=== PATIENT | female | born 1950 | race Caucasian/White ===

== ENCOUNTER 2016-07-23 13:18 | Emergency (ER) | payer BC ==
[~2016-07-23] VITALS: Ht 157.5 cm; Wt 63.5 kg
[2016-07-23 13:23] VITALS: Ht 157.5 cm; Wt 63.5 kg
[2016-07-23] MEDS ORDERED: SODIUM CHLORIDE 0.9% 1000ML 1,000 ML IV STA (14:16)
[2016-07-23] MEDS ORDERED: KETOROLAC TROMETHAMINE 30 MG/ML VIAL IV STA (14:16)
--- NOTE | 2016-07-23 14:21 | EMERGENCY ROOM VISIT NOTE ---
History Report prepared by Sav: Marycarmen Cardenas Under the Supervision of: Dr. Michael Zhang M.D. First contact with patient: 14:10 Chief Complaint: ILLNESS Stated Complaint: EVERYTHING HURTS, FEVER History of Present Illness The patient is a 66 year old female who presents to the Emergency Room with complaints of a persistent illness. She reports she has experienced a fever, cough and body aches since . She rates her discomfort as a 5/10. Last night she started dry heaving from coughing so much. She complains of a headache , but has not experienced any difficulty or pain with moving her head or neck. She did get a flu vaccination this year. She has taken Tylenol for her fever, with the last dose being taken sometime this morning. It has provided moderate relief of her pain and has kept her temperature under control when she takes it. She states the highest her fever has been is around 103 degrees. 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 A total of 10 systems reviewed and were otherwise negative. Past Medical & Surgical Medical Problems: (1) Kidney stones Family History Patient reports no known family medical history. Social History Smoking Status: Never Smoker Alcohol Use: none Drug Use: none Marital Status: Housing Status: lives with significant other Occupation Status: retired Current/Historical Medications Scheduled Acetaminophen (Tylenol), 1 TAB PO DAILY Azithromycin (Zithromax), 250 MG PO DAILY Fluticasone Propionate (Fluticasone Propionate), 1 SPRAY SANTI DAILY Kqciajhizivlv-Iwgkrmyoqt-Xklcx (Nyquil Severe Cold/Flu 5-6.25-10-325 mg/15Ml), Unknown Dose PO DAILY Prednisone (Prednisone Tab), 0 PO DAILY Scheduled PRN Colestipol Hcl (Colestipol Hcl), 1 GM PO DAILY PRN for Diarrhea Allergies Coded Allergies: No Known Allergies (Verified , 07/23/16) Physical Exam Vital Signs Date Time Temp Pulse Resp B/P Pulse Ox O2 Delivery O2 Flow Rate FiO2 07/23/16 16:47 37.0 124 16 136/75 99 07/23/16 16:03 124 16 93 07/23/16 15:58 136/75 07/23/16 15:33 121 22 100 07/23/16 15:28 137/76 07/23/16 15:18 111 15 100 07/23/16 15:12 110 07/23/16 15:10 99 Room Air 07/23/16 14:58 137/84 07/23/16 13:23 37.0 120 20 124/90 99 Room Air Physical Exam GENERAL: Patient is a healthy-appearing well-nourished HEAD: Normocephalic atraumatic EYES: Ocular movements intact pupils equal and react to light OROPHARYNX mucous membranes are moist no exudates present no erythema or edema present NECK: Supple no nuchal rigidity CHEST: Good equal expansion LUNGS: Clear and equal to auscultation CARDIAC: Normal S1 and S2 ABDOMEN: Soft nontender no guarding BACK: No CVA tenderness EXTREMITIES: No pain upon palpation normal muscle strength in all groups no clubbing cyanosis or edema NEURO: Patient is following commands is answering questions appropriately. Alert and oriented x3 Cranial Nerves 2-12 grossly intact Medical Decision & Procedures ER Provider Diagnostic Interpretation: This X-Ray was reviewed and interpreted by myself and the radiologist. SINGLE VIEW CHEST IMPRESSION: No acute cardiopulmonary abnormality. Electronically signed by: Jeremias Baldwin M.D. 07/23/2016 3:21 PM Laboratory Results 07/23/16 14:35 Red Blood Count 4.94, Mean Corpuscular Volume 89.7, Mean Corpuscular Hemoglobin 31.8, Mean Corpuscular Hemoglobin Concent 35.4, Mean Platelet Volume 12.3, Neutrophils (%) (Auto) 76.0, Lymphocytes (%) (Auto) 14.4, Monocytes (%) (Auto) 8.0, Eosinophils (%) (Auto) 1.0, Basophils (%) (Auto) 0.3, Neutrophils # (Auto) 8.42, Lymphocytes # (Auto) 1.60, Monocytes # (Auto) 0.89, Eosinophils # (Auto) 0.11, Basophils # (Auto) 0.03 07/23/16 14:35 Test 07/23/16 14:35 07/23/16 15:07 White Blood Count 11.08 K/uL (4.8-10.8) Red Blood Count 4.94 M/uL (4.2-5.4) Hemoglobin 15.7 g/dL (12.0-16.0) Hematocrit 44.3 % (37-47) Mean Corpuscular Volume 89.7 fL (80-100) Mean Corpuscular Hemoglobin 31.8 pg (25-34) Mean Corpuscular Hemoglobin Concent 35.4 g/dl (32-36) Platelet Count 177 K/uL (130-400) Mean Platelet Volume 12.3 fL (7.4-10.4) Neutrophils (%) (Auto) 76.0 % Lymphocytes (%) (Auto) 14.4 % Monocytes (%) (Auto) 8.0 % Eosinophils (%) (Auto) 1.0 % Basophils (%) (Auto) 0.3 % Neutrophils # (Auto) 8.42 K/uL (1.4-6.5) Lymphocytes # (Auto) 1.60 K/uL (1.2-3.4) Monocytes # (Auto) 0.89 K/uL (0.11-0.59) Eosinophils # (Auto) 0.11 K/uL (0-0.5) Basophils # (Auto) 0.03 K/uL (0-0.2) RDW Standard Deviation 41.1 fL (36.4-46.3) RDW Coefficient of Variation 12.6 % (11.5-14.5) Immature Granulocyte % (Auto) 0.3 % Immature Granulocyte # (Auto) 0.03 K/uL (0.00-0.02) Anion Gap 9.0 mmol/L (3-11) Est Creatinine Clear Calc Drug Dose 50.3 ml/min Estimated GFR () 69.8 Estimated GFR (Non- 60.2 BUN/Creatinine Ratio 10.9 (10-20) Calcium Level 9.3 mg/dl (8.5-10.1) Total Bilirubin 1.3 mg/dl (0.2-1) Direct Bilirubin 0.2 mg/dl (0-0.2) Aspartate Amino Transf (AST/SGOT) 19 U/L (15-37) Alanine Aminotransferase (ALT/SGPT) 25 U/L (12-78) Alkaline Phosphatase 88 U/L (45-117) Total Protein 8.3 gm/dl (6.4-8.2) Albumin 4.0 gm/dl (3.4-5.0) Thyroid Stimulating Hormone (TSH) 2.020 uIu/ml (0.300-4.500) Influenza Type A Antigen Neg for Influ A (NEG) Influenza Type B Antigen Neg for Influ B (NEG) Labs reviewed by ED physician. Medications Administered Medications (Trade) Dose Ordered Sig/Joe Route Start Time Stop Time Status Last Admin Dose Admin Sodium Chloride (Nss 1000ml) 1,000 ml @ 999 mls/hr Q1H1M STAT IV 07/23/16 14:16 07/23/16 15:16 DC 07/23/16 14:16 999 MLS/HR Ketorolac Tromethamine (Toradol Inj) 30 mg NOW STAT IV 07/23/16 14:16 07/23/16 14:19 DC 07/23/16 14:16 30 MG Albuterol/ Ipratropium (Duoneb) 12 ml ONE ONCE INH 07/23/16 14:30 07/23/16 14:36 DC 07/23/16 14:30 12 ML Albuterol (Ventolin Hfa Inhaler) 2 puffs NOW STAT INH 07/23/16 14:24 07/23/16 14:25 DC 07/23/16 14:24 2 PUFFS Azithromycin 500 mg 500 mg NOW STAT PO 07/23/16 15:26 07/23/16 15:28 DC 07/23/16 15:26 500 MG Methylprednisolone Sodium Succinate/ Syringe (Solu-Medrol IV/ Syringe) 0.96 ml @ 1.5 mls/min NOW ONCE IV 07/23/16 16:00 07/23/16 16:01 DC 07/23/16 16:00 1.5 MLS/MIN ECG Indication: other (fever) Rate (beats per minute): 112 Rhythm: sinus tachycardia Findings: no acute ischemic change, no ectopy ED Course 1412: Past medical records reviewed. The patient was evaluated in room A11. A complete history and physical examination was performed. 1416: Toradol 30 mg IV, NSS 1000 ml @ 999 mls/hr IV. 1424: Albuterol 2 puffs INH. 1430: DuoNeb 12 ml INH. 1525: I reevaluated the patient. She is feeling better and resting comfortably. 1526: Zithromax 500 mg PO, Solu-Medrol 60 mg IV. 1600: Methylprednisolone Sodium Succinate 60 mg/Syringe 0.96 ml @ 1.5 mls/min IV. 1645: I reevaluated the patient. She is feeling better. I discussed the patient' s results and discharge instructions and she verbalized complete understanding and agreement. Medical Decision Prior records/ancillary studies reviewed. Triage Nursing notes reviewed. The patient's history was concerning for fever. Differential diagnosis: Etiologies such as viral syndrome, otitis, pharyngitis, pneumonia, influenza, meningitis, urinary tract infection, sepsis, bacteremia, as well as others were entertained. This is a 66-year-old female who presents emergency Department with flulike symptoms. The patient is wheezing on examination. For this reason the patient was given an hour-long breathing treatment and started on Solu-Medrol. She has a clear chest x-ray. Pertussis and influenza swabs are obtained. Her influenza swab is negative. The patient was started on azithromycin I will be continued on prednisone at home. Repeat examination revealed much improvement patient's symptoms. I encouraged the patient's take I Profen as well as Tylenol. Patient was in agreement with the treatment plan. Impression Primary Impression: Bronchitis Scribe Attestation The scribe's documentation has been prepared under my direction and personally reviewed by me in its entirety. I confirm that the note above accurately reflects all work, treatment, procedures, and medical decision making performed by me. Departure Information Dispostion Home / Self-Care Prescriptions Azithromycin (ZITHROMAX) 250 Mg Tab 250 MG PO DAILY, #4 TAB Prov: Michael Zhang MD 07/23/16 Prednisone (Prednisone Tab) 20 Mg Tab 0 PO DAILY, #7 TAB 2 TABS DAILY FOR 2 DAYS, THEN 1 TAB DAILY FOR 2 DAYS, THEN 1/2 TAB DAILY FOR 2 DAYS. Prov: Michael Zhang MD 07/23/16 Referrals Arnold Ervin M.D. (PCP) Patient Instructions A Signature Page, ED Bronchitis Abx Tx, My [facility] Additional Instructions Use inhaler twice every 6 hours Culture results are usually available in approx 48 hours You have been examined and treated today on an emergency basis only. This is not a substitute for, or an effort to provide, complete comprehensive medical care. It is impossible to recognize and treat all injuries or illnesses in a single emergency department visit. It is therefore important that you follow up closely with Dr Ervin. Call as soon as possible for an appointment. Thank you for your time and consideration. I look forward to speaking with you again soon. Please don't hesitate to call us if you have any questions.
[2016-07-23] MEDS ORDERED: ALBUTEROL HFA 8 GM INHALER INH STA (14:24)
[2016-07-23] MEDS ORDERED: ALBUT/IPRATROP 3MG/0.5MG NEB 3 ML VIAL INH ONE (14:30)
[2016-07-23 14:50] LABS: BASO % 0.3 %; BASO ABS # 0.03 K/uL (0-0.2); COMPLETE YES; HEMATOCRIT 44.3 % (37-47); IG% 0.3 %; LYMPH % 14.4 %; MEAN CELL VOLUME 89.7 fL (80-100); MEAN CORPUSCULAR HEMOGLOBIN 31.8 pg (25-34); MEAN CORPUSCULAR HGB CONC 35.4 g/dl (32-36); MEAN PLATELET VOLUME 12.3 fL (7.4-10.4); PLATELET COUNT 177 K/uL (130-400); RED BLOOD COUNT 4.94 M/uL (4.2-5.4); WHITE BLOOD COUNT 11.08 K/uL (4.8-10.8)
[2016-07-23] MEDS ORDERED: COLE1TAB5 PO (14:52)
[2016-07-23] MEDS ORDERED: FLNIN/ NAE (14:54)
[2016-07-23] MEDS ORDERED: ACET-1256 PO (14:56)
[2016-07-23] MEDS ORDERED: PHEN-905 PO (14:57)
[2016-07-23 15:10] VITALS: O2SAT 99
[2016-07-23 15:15] LABS: BUN/CREATININE RATIO 10.9 (10-20); CALCIUM 9.3 mg/dl (8.5-10.1); CREATININE 0.99 mg/dl (0.60-1.20); POTASSIUM 3.8 mmol/L (3.5-5.1)
[2016-07-23 15:19] LABS: THYROID STIMULATING HORMONE 2.02 uIu/ml (0.300-4.500)
--- NOTE | 2016-07-23 15:23 | DIAGNOSTIC IMAGING REPORT ---
SINGLE VIEW CHEST CLINICAL HISTORY: Dyspnea. FINDINGS: An AP, portable, upright chest radiograph is obtained. No prior studies are available for comparison at the time of dictation. The examination is degraded by portable technique, apical lordotic positioning, and patient rotation. The cardiomediastinal silhouette is unremarkable. Nonspecific interstitial thickening is observed. The lungs and pleural spaces are clear. No pneumothorax is seen. The skeletal structures are osteopenic. The bony thorax is grossly intact. Cholecystectomy clips are identified in the right upper quadrant. IMPRESSION: No acute cardiopulmonary abnormality. Electronically signed by: Jeremias Baldwin M.D. 07/23/2016 3:21 PM
[2016-07-23] MEDS ORDERED: AZITHROMYCIN 250 MG TAB PO STA (15:26)
[2016-07-23] MEDS ORDERED: METHYLPREDNISOLONE 125 MG VIAL IV STA (15:26)
[2016-07-23] MEDS ORDERED: PRED20TA2 PO (15:39)
[2016-07-23] MEDS ORDERED: AZIT-60 PO (15:40)
[2016-07-23] MEDS ORDERED: METHYLPREDNISOLONE 60 MG in SYRINGE 0 ML IV ONE (16:00)
[2016-07-23 16:47] VITALS: BP 136/75; PULSE 124; TEMP 37; O2SAT 99
[2016-07-26 13:28] LABS: BORDETELLA PERTUSSIS SOURCE Swab
== END 2016-07-23 16:49 | disposition home or self-care (01) ==
LOC: C.EDB 13:20 → C.EDA 16:49
DX: J40 Bronchitis, not specified as acute or chronic (principal); Z87.442 Personal history of urinary calculi

== ENCOUNTER → 2016-08-08 | Outpatient (CLI) | payer BC ==
[~2016-08-08] MED LIST: ACET-1256 PO; COLE1TAB5 PO; FLNIN/ NAE; PHEN-905 PO; PRED20TA2 PO
--- NOTE | 2016-08-08 09:32 | DIAGNOSTIC IMAGING REPORT ---
BILIARY ULTRASOUND CLINICAL HISTORY: PANCREATITIS COMPARISON STUDY: CT scan dated 05/13/2015 FINDINGS: The pancreas appears sonographically normal. There are no peripancreatic fluid collections. The gallbladder surgically absent. There is no ductal dilatation. The common bile duct measures 4 mm. There is no right-sided hydronephrosis. No focal hepatic masses are visualized. There is borderline increase in hepatic echogenicity. IMPRESSION: 1. Surgically absent gallbladder. No evidence of ductal dilatation 2. No hepatic or pancreatic masses identified 3. No peripancreatic fluid collections are visualized Electronically signed by: Trent De Leon M.D. 08/08/2016 9:31 AM Dictated Date/Time: 08/08/2016 9:29 AM
== END | disposition home or self-care (01) ==
LOC: C.ULTRBC 08:52
PROVIDERS: ATTEND Family Medicine
DX: K85.90 Acute pancreatitis without necrosis or infection, unspecified (principal); Z90.49 Acquired absence of other specified parts of digestive tract

== ENCOUNTER → 2016-10-31 | Outpatient (CLI) | payer BC ==
--- NOTE | 2016-10-31 21:32 | DIAGNOSTIC IMAGING REPORT ---
MRCP HISTORY: Right upper quadrant abdominal PAIN, PREVIOUS GALLBLADDER SURGERY TECHNIQUE: MRCP of the abdomen was performed according to standard department protocol without the use of intravenous contrast COMPARISON STUDY: Abdominal ultrasound 08/08/2016. Abdomen and pelvis CT 05/13/2015. FINDINGS: The lung bases are clear. No hepatic or splenic masses. There are few subcentimeter bilateral renal T2 hyperintense lesions. The largest in the left kidney measures 9 mm. These favor cysts. No hydronephrosis. Stable 1.6 cm benign left adrenal adenoma. Normal right adrenal gland. The pancreas is unremarkable. No retroperitoneal lymphadenopathy. Prior cholecystectomy. The main pancreatic duct is normal in course and caliber. Normal caliber common bile duct measuring 4 mm. No filling defects within the common bile duct. No intrahepatic bile duct dilatation. IMPRESSION: 1. Cholecystectomy. 2. Normal caliber common bile duct. No filling defects within the common bile duct. 3. Normal pancreas and normal main pancreatic duct. Electronically signed by: Mark Lam M.D. 10/31/2016 9:30 PM Dictated Date/Time: 10/31/2016 9:23 PM
== END | disposition home or self-care (01) ==
LOC: C.MRI 18:28
PROVIDERS: ATTEND Internal Medicine Gastroenterology
DX: R10.11 Right upper quadrant pain (principal); Z90.49 Acquired absence of other specified parts of digestive tract

== ENCOUNTER 2019-05-16 16:37 | Observation (INO) ==
[2019-05-16] MEDS ORDERED: MECLIZINE HCL 25 MG TAB PO STA (17:20)
[2019-05-16] MEDS ORDERED: ONDANSETRON INJ 2 MG/ML 2 ML VIAL IV STA (17:20)
[2019-05-16] MEDS ORDERED: SODIUM CHLORIDE 0.9% 500 ML IV SCH (17:30)
--- NOTE | 2019-05-16 17:52 | CT Scan Report ---
CT head/brain wo con CT DOSE: 614.27 mGy.cm HISTORY: Mental status change vertigo eval for cva/bleed TECHNIQUE: Multiaxial CT images of the head were performed without the use of intravenous contrast. A dose lowering technique was utilized adhering to the principles of ALARA. Comparison: None. Findings: The paranasal sinuses and mastoid air cells are clear. The calvarium and skull base are int act. The ventricles and sulci are within normal limits. There is no mass, hematoma, midline shift, or acute infarct. Impression: No acute intracranial abnormality. Mild age-related atrophy and chronic small vessel change. The above report was generated using voice recognition software. It may contain grammatical, syntax or spelling errors. Electronically signed by: Roberto Odonnell M.D. 05/16/2019 5:51 PM
[2019-05-16 17:59] LABS: Basophils # (auto) 0.03 K/uL (0-0.2); Basophils % (auto) 0.3 %; Eosinophils # (auto) 0.04 K/uL (0-0.5); Eosinophils % (auto) 0.4 %; Hematocrit (blood only) 43.2 % (37-47); Hemoglobin 15.1 g/dL (12.0-16.0); Immature Granulocytes # (auto) 0.09 K/uL (0.00-0.02); Immature Granulocytes % (auto) 0.9 %; Lymphocytes # (auto) 1.17 K/uL (1.2-3.4); Lymphocytes % (auto) 11.7 %; Mean Corpuscular Hemoglobin 31.1 pg (25-34); Mean Corpuscular Volume 89.1 fL (80-100); Monocytes # (auto) 0.44 K/uL (0.11-0.59); Monocytes % (auto) 4.4 %; Neutrophils # (auto) 8.26 K/uL (1.4-6.5); Neutrophils % (auto) 82.3 %; Platelet Count 147 K/uL (130-400); RDW Coefficient of Variation 12.9 % (11.5-14.5); Red Blood Count 4.85 M/uL (4.2-5.4); White Blood Count 10.03 K/uL (4.8-10.8)
[2019-05-16 18:04] LABS: Albumin Level 4.1 gm/dl (3.4-5.0); BUN Creatinine Ratio 19.7 (10-20); Calcium 9.3 mg/dl (8.5-10.1); Creatinine Clr Calc Pharmacy 49.3 ml/min; Est GFR (African American) 65.1; Est GFR (Non-African American) 56.2; Potassium 3.3 mmol/L (3.5-5.1)
[2019-05-16 18:07] LABS: Albumin Globulin Ratio 1.1 (0.9-2); Bilirubin,Total 1.6 mg/dl (0.2-1); Globulin 3.8 gm/dl (2.5-4.0); Total Protein 7.9 gm/dl (6.4-8.2)
[2019-05-16] MEDS ORDERED: PROMETHAZINE 12.5 MG/50.5 ML BAG IV STA (19:00)
--- NOTE | 2019-05-16 20:36 | History & Physical Report ---
Date of Service May 16, 2019 Assessment & Plan (1) Vertigo: Patient with vertigo since 15:00, +nystagmus, +ambulatory difficulty due to symptoms. DDx to include BPPV, labrynthitis vs CVA/TIA -Observation to medical floor with telemetry -MRI brain/MRA head and neck ordered -Meclizine 25mg po q 6 hours -Zofran PRN -Toradol PRN headache/pain -Fall precautions Present on Admission?: Yes (2) Hypokalemia: K=3.3 -Check Mg -LR + 20mEq K x 1 liter -KCL 20 mEq PO -BMP in AM Present on Admission?: Yes (3) Diarrhea: Patient reports chronic diarrhea since her cancer. She manages with Imodium as needed. Patient with no leukocytosis, HD stable, abdominal exam benign -C.diff and culture sent from ER -Continue Imodium PRN F/E/N - LR at 80mL/hr x 1 liter, monitor electrolytes and replete as needed, regular diet as tolerated Ppx - Lovenox Code - Full per discussion with patient Dispo - Observation to medical floor with telemetry History of Present Illness Chief Complaint: vertigo Primary Care Provider: Arnold Ervin MD Nona Cortez is a 69yo C female with remote history of Burkitt's Lymphoma, prior DVT presenting with vertigo. She states that her symptoms began acutely around 15:00 with dizziness and room spinning as well as nausea, vomiting, double vision. Also with some neck pain and diffuse weakness. Symptoms are worse with turning her head. She denies ear pain, hearing loss, tinnitus or fullness in her ears. Denies URI symptoms. Denies numbness/tingling/weakness. She is unable to ambulate without assistance and getting up to the bathroom caused severe nausea and vomiting. She does have chronic diarrhea since her cancer, reports that this is relatively unchanged, fairly well controlled with Imodium PRN. Patient had a case of vertigo years ago that was much milder - self limiting after 2-3 days. ER Course: Meclilzine 25mg, Zofran 4mg IV, Promethazine 12.5mg, NSS Allergies Allergy/AdvReac Type Severity Reaction Status Date / Time No Known Allergies Allergy Unknown Verified 05/16/19 17:50 Home Medications Home Medications Medication Instructions Recorded Confirmed Type loperamide [Imodium A-D] 0 mg PO DIRECTED PRN 11/27/18 05/16/19 History Past Med/Surg History Medical History Burkitt lymphoma (Inactive) DVT (deep venous thrombosis) (Inactive) Surgical History History of cholecystectomy History of total abdominal hysterectomy and bilateral salpingo-oophorectomy Family History Other Cancer Heart disease Social History marital status: Feels Safe at Home: Yes Smoking Status: Never smoker Hx Alcohol Use: No Hx Substance Use: No Review of Systems Review of Systems: All systems reviewed & are unremarkable except as noted in HPI & below Patient denies fevers/chills, chest pain/SOB/lightheadedness. Occasional palpitations Physical Exam Physical Exam: General: patient resting in dark room, eyes closed, AA&O x 4 Skin: warm, dry, intact, no rashes or lesions HEENT: NC/AT, PERRL, EOMI with horizontal nystagmus, anicteric sclera, conjunctiva without injection, external ear normal to inspection and nontender, nares patent, moist mucus membranes, dentition intact, no oropharyngeal lesions, neck supple, trachea midline, no LAD, no thyromegaly, no JVD Heart: +S1/S2, regular, no m/r/g Lungs: equal air entry bilaterally, no rales/rhonchi/wheezes Abd: +BS, soft, NT/ND, no masses/organomegaly/ascites Ext: warm, 2+ pulses in UE/LE bilaterally, no clubbing/cyanosis or edema Neuro: nonfocal, patient AA&O x 4, speech intact, no facial droop, moving all extremities on command, 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 & Data Vital Signs (Past 12 Hours) Vital Signs Temp Pulse Resp BP BP Pulse Ox 05/16/19 19:15 16 150/89 H 98 05/16/19 18:45 98 05/16/19 16:37 36.5 C 91 H 16 150/89 H 99 Laboratory Results Lab Results 05/16/19 05/16/19 Range/Units 17:37 17:37 WBC 10.03 (4.8-10.8) K/uL RBC 4.85 (4.2-5.4) M/uL Hgb 15.1 (12.0-16.0) g/dL Hct 43.2 (37-47) % MCV 89.1 (80-100) fL MCH 31.1 (25-34) pg MCHC 35.0 (32-36) g/dL RDW Std Deviation 42.0 (36.4-46.3) fL RDW Coeff of Veena 12.9 (11.5-14.5) % Plt Count 147 (130-400) K/uL MPV 12.0 H (7.4-10.4) fL Immature Gran % (Auto) 0.9 % Neut % (Auto) 82.3 % Lymph % (Auto) 11.7 % [place] % (Auto) 4.4 % Eos % (Auto) 0.4 % Baso % (Auto) 0.3 % Immature Gran # (Auto) 0.09 H (0.00-0.02) K/uL Neut # (Auto) 8.26 H (1.4-6.5) K/uL Lymph # (Auto) 1.17 L (1.2-3.4) K/uL [place] # (Auto) 0.44 (0.11-0.59) K/uL Eos # (Auto) 0.04 (0-0.5) K/uL Baso # (Auto) 0.03 (0-0.2) K/uL Sodium 141 (136-145) mmol/L Potassium 3.3 L (3.5-5.1) mmol/L Chloride 108 H (98-107) mmol/L Carbon Dioxide 25 (21-32) mmol/L Anion Gap 8.0 (3-11) BUN 20 H (7-18) mg/dl Creatinine 1.03 (0.6-1.2) mg/dl Est Cr Clr Drug Dosing 49.3 ml/min Est GFR ( Amer) 65.1 Est GFR (Non-Af Amer) 56.2 BUN/Creatinine Ratio 19.7 (10-20) Glucose 123 H (70-99) mg/dl Calcium 9.3 (8.5-10.1) mg/dl Total Bilirubin 1.6 H (0.2-1) mg/dl AST 46 H (15-37) U/L ALT 52 (12-78) U/L Alkaline Phosphatase 82 (45-117) U/L Total Protein 7.9 (6.4-8.2) gm/dl Albumin 4.1 (3.4-5.0) gm/dl Globulin 3.8 (2.5-4.0) gm/dl Albumin/Globulin Ratio 1.1 (0.9-2) Diagnostic Findings CT head/brain wo con CT DOSE: 614.27 mGy.cm HISTORY: Mental status change vertigo eval for cva/bleed TECHNIQUE: Multiaxial CT images of the head were performed without the use of intravenous contrast. A dose lowering technique was utilized adhering to the principles of ALARA. Comparison: None. Findings: The paranasal sinuses and mastoid air cells are clear. The calvarium and skull base are intact. The ventricles and sulci are within normal limits. There is no mass, hematoma, midline shift, or acute infarct. Impression: No acute intracranial abnormality. Mild age-related atrophy and chronic small vessel change. The above report was generated using voice recognition software. It may contain grammatical, syntax or spelling errors. Electronically signed by: Roberto Odonnell M.D. 05/16/2019 5:51 PM Dictated: 05/16/191749 Transcribed: 05/16/191749 ECG Additional Comments: The study shows NSR at 79bpm, normal axis, WB=851, QRS=74, RKn=076, no acute ischemic changes Code Status & VTE Plan Code Status FULL VTE Prophylaxis Plan VTE Prophylaxis will be ordered: Yes PG Care Time/CCT Total # of Minutes Spent Total Time Spent with Patient: Total time spent is greater than 50% in coordination of care (as documented) at patient's floor/unit and/or counseling patient: (1) Diarrhea Diarrhea type: unspecified type Qualified Code(s): R19.7 - Diarrhea, unspecified
--- NOTE | 2019-05-16 21:26 | Magnetic Resonance Report ---
MR angio head wo con HISTORY: Mental status change vertigo eval for VBI TECHNIQUE: 3-D [id number] MRA of the brain was performed without contrast. COMPARISON STUDY: None. FINDINGS: Visualized intracranial internal carotid arteries, distal vertebral arteries, and basilar a rtery are widely patent. There is no significant stenosis, occlusion, or aneurysm seen within the maría ateral ACAs, MCAs, or clinical rehab liaison. IMPRESSION: No significant stenosis, occlusion, or aneurysm within the [place]. The above report was generated using voice recognition software. It may contain grammatical, syntax or spelling errors. Electronically signed by: Roberto Odonnell M.D. 05/16/2019 9:24 PM
[2019-05-16] MEDS ORDERED: GADOBUTROL 65ML VIAL IV PRN (21:37)
--- NOTE | 2019-05-16 22:00 | Magnetic Resonance Report ---
MR brain wo/w con CLINICAL HISTORY: vertigo eval for cva mental status change COMPARISON STUDY: No previous studies for comparison. TECHNIQUE: Utilizing a 1.5 Linda magnet and dedicated coil, multiplanar, multiecho imaging of the br ain was performed pre and postcontrast administration. IV administration of 8 mL of Gadavist contras t was uneventful. FINDINGS: Diffusion-weighted images show no evidence for an acute ischemic event. There are findings of mild age-related cerebellar as well as cerebral atrophy with mild chronic small vessel change. Ventricular system is midline. Postcontrast images are considered negative for enhancing lesion. The sella and parasellar regions are unremarkable. Internal auditory canals are symmetric. IMPRESSION: 1. No acute intracranial abnormality. 2. Age-related atrophy and chronic small vessel change. 3. No abnormal postcontrast enhancement. The above report was generated using voice recognition software. It may contain grammatical, syntax or spelling errors. Electronically signed by: Roberto Odonnell M.D. 05/16/2019 9:59 PM
--- NOTE | 2019-05-16 22:13 | Emergency Department Note ---
Entered by Lashon Pace acting as a scribe for Robin Al MD History of Present Illness General Chief complaint: Illness Stated complaint: WEAKNESS, DIZZY, DIARRHEA, VERTIGO Source: patient Mode of arrival: EMS Limitations: no limitations History of Present Illness Provider complaint: Vertigo Onset (ago): hour(s) (around 1500 today) Location: head Pain Consistency: + other (worsening) Quality: + other (vertigo) The patient is a 69 year old female with a history of Burkitt lymphoma, DVT, cholecystectomy, hysterectomy, and bilateral salpingo-oophorectomy who presents to the Emergency Room with complaints of worsening vertigo starting around 1500 today. The patient reports that her vertigo came on suddenly and that she has never experienced vertigo to this severity before. She states that room started spinning and that she vomited with any kind of body movement. She noted that she felt better when she closed her eyes. She also complains of general weakness and diarrhea but denies any headaches, one-sided numbness, speaking difficulties, fevers, chest pain, shortness of breath, urinary symptoms, abdominal pain, tinnitus, and hearing loss. She adds that she was able to walk from her house to the ambulance with assistance, although she was very shaky. She does not recall receiving anything in the ambulance prior to arrival. The patient reports that she last experience vertigo many years ago. She states that she did not have an MRI or CT performed at this time but that her doctor possibly gave her some medication to treat her symptoms. Home Medications Home Medications Medication Instructions Recorded Confirmed Type loperamide [Imodium A-D] 0 mg PO DIRECTED PRN 11/27/18 05/16/19 History Allergies Allergy/AdvReac Type Severity Reaction Status Date / Time No Known Allergies Allergy Unknown Verified 05/16/19 17:50 Past Med/Surg History Medical History Burkitt lymphoma (Inactive) DVT (deep venous thrombosis) (Inactive) Surgical History History of cholecystectomy History of total abdominal hysterectomy and bilateral salpingo-oophorectomy Family History Other Cancer Heart disease Social History marital status: Feels Safe at Home: Yes Smoking Status: Never smoker Hx Alcohol Use: No Hx Substance Use: No Review of Systems See HPI for pertinent positives & negatives. and A total of 10 systems reviewed and were otherwise negative Physical Exam Vital Signs Vital Signs - 24 hr 05/16/19 16:37 05/16/19 18:45 05/16/19 19:15 Temperature 36.5 C Temperature Source Oral Sepsis Recent Fever Within 48 Hours No Sepsis New/Unexplained Change in Mental Status No Sepsis Action Taken by Nursing No Action Required Pulse Rate 91 H Pulse Rhythm [Apical] Regular Pulse Strength [Apical] Normal Respiratory Rate 16 16 Respiratory Effort / Characteristics Non-Labored Non-Labored Respiratory Depth Normal Normal Respiratory Pattern Regular Blood Pressure 150/89 H Blood Pressure [Right Arm] 150/89 H Blood Pressure Mean 109 Blood Pressure Mean [Right Arm] 109 Blood Pressure Position [Right Arm] Lying Pulse Oximetry 99 98 98 Oxygen Delivery Method Room Air Room Air Constitutional: Vital signs reviewed. Eyes: Pupils are equal round reactive to light. Conjunctiva are noninjected. ENT: Pharynx is clear without erythema or exudate. Mucous membranes are moist. Neck supple without meningeal signs. Respiratory: Clear to auscultation bilaterally. Breath sounds are equal bilaterally. Cardiovascular: Regular rate and rhythm. No rubs or gallops. GI: Soft, nondistended and nontender. Bowel sounds are present. Musculoskeletal: No peripheral edema. No lower extremity tenderness. Integumentary: No cyanosis. Neurological: The patient is awake and alert. Cranial nerves II-XII are intact. Motor is 5 out of 5 all extremities. Sensation is intact to light touch all extremities. Normal speech. No pronator drift. No limb ataxia. No dysdiadochokinesia. Right lateral nystagmus. Psychiatric: Normal affect. Course 1713: The patient was evaluated in room A2, and a complete history and physical examination were performed. 1819: I checked on the patient and she is feeling better. 1899: The patient got up to go the bathroom and started vomiting again at this time. 1943: I reassessed the patient and she still has significant vertigo at rest. I recommended hospitalization and she verbalized agreement to the treatment plan. 1944: I reviewed the patient's case with Dr. Cuadra - Hospitalist, Nicole Beal. Dr. Cuadra will evaluate the patient for further management. Consultations Consultation #1: I reviewed the patient's case with Dr. Cuadra - Hospitalist, Nicole Beal. Dr. Cuadra will evaluate the patient for further management. Time: 19:45 Administered Medications Gadobutrol (Gadavist 65ml) 7 ml IV ONCE PRN PRN Reason: Interaction Checking Stop: 05/20/19 21:36 Last Admin: 05/16/19 21:37 Dose: 7 ml Documented by: [id number] Discontinued Medications Sodium Chloride (Nss) 500 mls @ 999 mls/hr IV .Q31M MITZI Stop: 05/16/19 18:00 Last Infusion: 05/16/19 18:11 Dose: 0 mls/hr Documented by: [id number] Admin: 05/16/19 17:37 Dose: 999 mls/hr Documented by: [id number] Promethazine HCl (Phenergan) 12.5 mg in 50.5 mls @ 202 mls/hr IV NOW STA Stop: 05/16/19 19:14 Last Infusion: 05/16/19 19:27 Dose: 0 mls/hr Documented by: [id number] Admin: 05/16/19 19:09 Dose: 202 mls/hr Documented by: [id number] Meclizine HCl (Antivert) 25 mg PO NOW STA Stop: 05/16/19 17:21 Last Admin: 05/16/19 17:37 Dose: 25 mg Documented by: [id number] Ondansetron HCl (Zofran) 4 mg IV NOW STA Stop: 05/16/19 17:21 Last Admin: 05/16/19 17:37 Dose: 4 mg Documented by: [id number] Medical Decision Making Differential Diagnosis Differential diagnosis includes: BPPV, labyrinthitis, ICH, CVA, brain mass. Medical Records Attestation: I reviewed the patient's medical records. I did perform a limited focused review of portions of the patient's old chart on the electronic medical record. The patient has had no recent pertinent visits to this hospital. Home Medications Current Medication List: was personally reviewed by me Laboratory Data Attestation: I reviewed the patient's lab results. Result diagrams: 05/16/19 17:37 05/16/19 17:37 Lab Results 05/16/19 05/16/19 Range/Units 17:37 17:37 WBC 10.03 (4.8-10.8) K/uL RBC 4.85 (4.2-5.4) M/uL Hgb 15.1 (12.0-16.0) g/dL Hct 43.2 (37-47) % MCV 89.1 (80-100) fL MCH 31.1 (25-34) pg MCHC 35.0 (32-36) g/dL RDW Std Deviation 42.0 (36.4-46.3) fL RDW Coeff of [place] 12.9 (11.5-14.5) % Plt Count 147 (130-400) K/uL MPV 12.0 H (7.4-10.4) fL Immature Gran % (Auto) 0.9 % Neut % (Auto) 82.3 % Lymph % (Auto) 11.7 % [place] % (Auto) 4.4 % Eos % (Auto) 0.4 % Baso % (Auto) 0.3 % Immature Gran # (Auto) 0.09 H (0.00-0.02) K/uL Neut # (Auto) 8.26 H (1.4-6.5) K/uL Lymph # (Auto) 1.17 L (1.2-3.4) K/uL [place] # (Auto) 0.44 (0.11-0.59) K/uL Eos # (Auto) 0.04 (0-0.5) K/uL Baso # (Auto) 0.03 (0-0.2) K/uL Sodium 141 (136-145) mmol/L Potassium 3.3 L (3.5-5.1) mmol/L Chloride 108 H (98-107) mmol/L Carbon Dioxide 25 (21-32) mmol/L Anion Gap 8.0 (3-11) BUN 20 H (7-18) mg/dl Creatinine 1.03 (0.6-1.2) mg/dl Est Cr Clr Drug Dosing 49.3 ml/min Est GFR ( Amer) 65.1 Est GFR (Non-Af Amer) 56.2 BUN/Creatinine Ratio 19.7 (10-20) Glucose 123 H (70-99) mg/dl Calcium 9.3 (8.5-10.1) mg/dl Total Bilirubin 1.6 H (0.2-1) mg/dl AST 46 H (15-37) U/L ALT 52 (12-78) U/L Alkaline Phosphatase 82 (45-117) U/L Total Protein 7.9 (6.4-8.2) gm/dl Albumin 4.1 (3.4-5.0) gm/dl Globulin 3.8 (2.5-4.0) gm/dl Albumin/Globulin Ratio 1.1 (0.9-2) Imaging Data Radiologist's Impression: Radiology results as stated below per my review and the radiologist's interpretation: CT head/brain wo con CT DOSE: 614.27 mGy.cm HISTORY: Mental status change vertigo eval for cva/bleed TECHNIQUE: Multiaxial CT images of the head were performed without the use of intravenous contrast. A dose lowering technique was utilized adhering to the principles of ALARA. Comparison: None. Findings: The paranasal sinuses and mastoid air cells are clear. The calvarium and skull base are intact. The ventricles and sulci are within normal limits. There is no mass, hematoma, midline shift, or acute infarct. Impression: No acute intracranial abnormality. Mild age-related atrophy and chronic small vessel change. The above report was generated using voice recognition software. It may contain grammatical, syntax or spelling errors. Electronically signed by: Roberto Odonnell M.D. 05/16/2019 5:51 PM MR angio head wo con HISTORY: Mental status change vertigo eval for VBI TECHNIQUE: 3-D [id number] MRA of the brain was performed without contrast. COMPARISON STUDY: None. FINDINGS: Visualized intracranial internal carotid arteries, distal vertebral arteries, and basilar artery are widely patent. 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 IMPRESSION: No significant stenosis, occlusion, or aneurysm within the [place] of [place]. The above report was generated using voice recognition software. It may contain grammatical, syntax or spelling errors. Electronically signed by: Roberto Odonnell M.D. 05/16/2019 9:24 PM MR brain wo/w con CLINICAL HISTORY: vertigo eval for cva mental status change COMPARISON STUDY: No previous studies for comparison. TECHNIQUE: Utilizing a 1.5 Linda magnet and dedicated coil, multiplanar, multie cho imaging of the brain was performed pre and postcontrast administration. IV administration of 8 mL of Gadavist contrast was uneventful. FINDINGS: Diffusion-weighted images show no evidence for an acute ischemic event. There are findings of mild age-related cerebellar as well as cerebral atrophy with mild chronic small vessel change. Ventricular system is midline. Postcontrast images are considered negative for enhancing lesion. The sella and parasellar regions are unremarkable. Internal a uditory canals are symmetric. IMPRESSION: 1. No acute intracranial abnormality. 2. Age-related atrophy and chronic small vessel change. 3. No abnormal postcontrast enhancement. ECG Data Attestation: I personally reviewed and interpreted this ECG as follows: Indication: other (dizziness) Rate (beats per minute): 79 Rhythm: normal sinus Findings: + other (QRS is 74); no PVC and no ST elevation Blood Pressure Blood Pressure Findings: Elevated blood pressure Blood Pressure Disposition: Referred to patients primary care provider [facility] Narrative I did evaluate the patient as noted above. Patient is presenting with sudden onset of vertigo with ataxia. It started at 3 PM today. On examination she does not appear to have cerebellar signs and has a lateral nystagmus. Her symptoms appear to be peripheral but due to her age I did wish to work-up fu rther. IV access was established. The patient was placed on a continuous monitor worker. I did treat her with IV Zofran and Antivert p.o. She was also given normal saline IV. I did order and personally review the patient's 12-lead EKG as described above. Her twelve-lead EKG does not demonstrate any acute ischemia. I did order and review the patient's blood work as noted in the electronic medical record. Her white count is 10. She is not anemic. Electrolytes demonstrate a potassium of 3.3. I did order a CT of the head. I did review the images myself as well as the radiology report as described above. There is no evidence of CVA or bleed. I did reassess the patient. She states she is feeling better. I did tell her that I would check on her again later. When I reassessed her she stated she went to the bathroom and vomited and feels worse. I did treat her with Phenergan IV. I later went to assess the patient again and she stated she did not feel much better. At this point I recommended hospitalization as she is unable to walk and care for herself. I did recommend MRI/MRA of the head neck to make sure that she does not have an infarct or vertebrobasilar insufficiency. I did order the MRI and MRA and discussed the case with the hospitalist and case assistant. Impression & Plan Ataxia, Hypokalemia, Vertigo, Intractable vomiting Discharge Plan Visit Data Chief Complaint: Illness Stated Complaint: WEAKNESS, DIZZY, DIARRHEA, VERTIGO ED Provider: Robin Al Discharge Problem: Ataxia, Hypokalemia, Vertigo, Intractable vomiting Patient Disposition: Admitted As Inpatient Discharge Instructions Interventions: ED Discharge Assessment Last Done: 05/16/19 20:44 Forms Stand Alone Forms: My [facility] [employer]Messaging Prescriptions Prescriptions: No Action loperamide [Imodium A-D] 2 mg Tablet PO DIRECTED PRN (Reason: Diarrhea) RF: 0 Referrals Referrals: Arnold Ervin MD [Primary Care Provider] - Discharge Problem: Intractable vomiting Qualifiers: Vomiting type: unspecified Nausea presence: unspecified Qualified Code(s): R11.10 - Vomiting, unspecified The scribe's documentation has been prepared under my direction and personally reviewed by me in its entirety. I confirm that the note above accurately reflects all work, treatment, procedures, and medical decision making performed by me.
[2019-05-16] MEDS ORDERED: KETOROLAC TROMETHAMINE 15 MG/ML VIAL IV PRN (22:16)
[2019-05-16] MEDS ORDERED: ONDANSETRON INJ 2 MG/ML 2 ML VIAL IV PRN (22:16)
--- NOTE | 2019-05-16 22:16 | Magnetic Resonance Report ---
MR angio neck wo/w con HISTORY: vertigo eval for VBI TECHNIQUE: Multiaxial CT angiography of the neck was performed IV contrast: 8 cc All measurements we re calculated based on NASCET criteria. Maximum intensity projection images were also obtained. A d ose lowering technique was utilized adhering to the principles of ALARA. COMPARISON STUDY: None. FINDINGS: The aortic arch and proximal great vessels are widely patent. There is no significant sten osis, occlusion, or dissection identified within the bilateral common carotid, internal carotid, or v ertebral arteries. 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 The above report was generated using voice recognition software. It may contain grammatical, syntax or spelling errors. Electronically signed by: Roberto Odonnell M.D. 05/16/2019 10:14 PM
[2019-05-16] MEDS ORDERED: LOPERAMIDE HCL 2 MG CAP PO PRN (22:25)
[2019-05-16 22:44] LABS: Phosphorus 2.3 mg/dl (2.5-4.9)
[2019-05-16] MEDS ORDERED: POTASSIUM CHLORIDE 20 MEQ in LACTATED RINGER'S 1,000 ML IV SCH (23:00)
[2019-05-16] MEDS: MECLIZINE HCL 25 MG TAB PO SCH (23:19)
[2019-05-17] MEDS: POTASSIUM CHLORIDE 20 MEQ TABCR PO ONE ×2 (01:02→06:20)
[2019-05-17] MEDS: MECLIZINE HCL 25 MG TAB PO SCH ×3 (06:12→17:54)
[2019-05-17 07:06] LABS: BUN Creatinine Ratio 18.6 (10-20); Calcium 8.7 mg/dl (8.5-10.1); Creatinine Clr Calc Pharmacy 58.7 ml/min; Est GFR (African American) 83.4; Est GFR (Non-African American) 71.9
[2019-05-17 07:14] LABS: Potassium 4.1 mmol/L (3.5-5.1)
[2019-05-17] MEDS ORDERED: ENOXAPARIN INJ 40 MG/0.4 ML SYR SQ SCH (09:00)
--- NOTE | 2019-05-17 09:52 | Neurology Consultation ---
Date of Consultation May 17, 2019 Assessment & Plan (1) Vertigo: Acute attack of vertigo occurring yesterday afternoon, currently resolved. No associated strokelike symptoms. Unremarkable neuro imaging including MRI of the brain and MR angiography of the head and neck. Patient's presentation not strongly suggestive of vertebrobasilar insufficiency or brainstem stroke or TIA. There is nothing on her imaging that would support this diagnosis. I suspect her symptoms were peripheral in etiology. She is responding well to treatment. Assuming she remains clinically stable throughout the day it may be reasonable to discharge her late this afternoon or early evening. However, if her symptoms recur it may be necessary to keep her overnight and continue with current treatment. I do not really have any further recommendations from a neurological standpoint. Again, her condition does not really seem to be central in etiology. Please contact me if I may be of further assistance. History of Present Illness Reason for Consultation: Vertigo Requesting Physician: May Steven MD Attending Physician: May Steven MD History of Present Illness The patient is a 69-year-old female with a chief complaint of vertigo that began acutely yesterday afternoon around 3 PM. She was in her kitchen and had just gotten something out of her refrigerator. She remembers sneezing and having the sudden onset of an intense spinning sensation, she perceived the environment spinning from right to left or counterclockwise and had difficulty focusing her vision. She also experienced associated nausea and multiple episodes of emesis and difficulty standing due to the intense vertiginous sensation. No associated diplopia, dysarthria, or focal weakness. Her symptoms had temporarily improved but then recurred during her assessment in the emergency department. She had a nonfocal neurological examination at that time. She was admitted to the medical floor for further evaluation and management of her vertigo. This morning, the patient reports that her symptoms are resolved. She has been able to get up and ambulate freely in her room. She denies headache, ear pain or fullness, hearing loss, or tinnitus. She continues to deny any associated focal neurological symptoms such as diplopia, dysarthria, dysphagia, or hemiparesis. She denies any recent illnesses but does admit to some chronic sinus pressure. She denies any significant neck pain. Treatment has consisted of IV fluids, antiemetics, and meclizine. Again, her symptoms have resolved. Past medical history is notable for a somewhat similar episode of vertigo occurring several years ago, but not this severe. History also notable for chronic diarrhea in the context of a history of Burkitt lymphoma. Her lymphoma has been stable. Allergies Allergy/AdvReac Type Severity Reaction Status Date / Time No Known Allergies Allergy Unknown Verified 05/16/19 17:50 Home Medications Home Medications Medication Instructions Recorded Confirmed Type loperamide [Imodium A-D] 0 mg PO DIRECTED PRN 11/27/18 05/16/19 History Patient History Medical History Burkitt lymphoma (Inactive) DVT (deep venous thrombosis) (Inactive) Kidney stones Surgical History History of cholecystectomy History of total abdominal hysterectomy and bilateral salpingo-oophorectomy Family History Other Cancer Heart disease Social History Preferred Language: Maori Communication Ability: Effective Beliefs That Will Affect Care: None marital status: Current Living Situation: Spouse Feels Safe at Home: Yes Smoking Status: Former smoker Hx Alcohol Use: No Hx Substance Use: No Review of Systems Constitutional: no fever and no chills Eyes: no blind spots and no diplopia Ear, Nose, Mouth, Throat: no ear pain, no tinnitus and no hearing loss Respiratory: no cough and no dyspnea Cardiovascular: no chest pain and no palpitations Gastrointestinal: as per Subjective / HPI, + nausea, + vomiting and + diarrhea/loose stools Genitourinary: no urinary incontinence Musculoskeletal: no neck pain and no myalgia Integumentary: no rash and no lesions Neurologic: as per Subjective / HPI and + dizziness; no localized weakness, no loss of sensation, no seizure-like activity, no syncope, no headache(s), no abnormal speech, no confusion and no memory loss Psychiatric: no depression and no anxiety Hematologic / Lymphatic: no easy bleeding and no easy bruising Physical Exam Physical Exam: The patient is a well-developed, well-nourished elderly female. She is alert and fully oriented. Recent and remote memory intact. Attention and concentration normal. Patient exhibits a normal spontaneous speech pattern as well as an age-appropriate fund of knowledge and normal comprehension of vocabulary. Visual ring full to confrontation. Visual acuity normal. Pupils equal round reactive to light and accommodation. Eye movements normal. There is no ptosis, nystagmus, or ophthalmoplegia. Facial sensation intact. There is no facial droop or weakness. Hearing intact. Palate elevates to midline. Shoulder shrug intact. Tongue protrudes to midline. Sensation intact to all modalities in all 4 limbs. Deep tendon reflexes intact and symmetrical for the arms and legs bilaterally. Plantar responses downgoing bilaterally. There is no dysdiadochokinesia or dysmetria with [id number] or [id number] bilaterally. Ophthalmoscopic examination reveals normal-appearing optic disks and posterior segments. No papilledema or hemorrhages. Carotid pulses normal bilaterally, no bruits to auscultation. Gait and station are normal. Patient exhibits normal muscle strength and tone for all 4 limbs. No atrophy. No abnormal movements observed. Results & Data Vital Signs (Past 12 Hours) Vital Signs Temp Pulse Pulse Pulse Resp BP Pulse Ox 05/17/19 07:58 36.5 C 72 16 117/78 96 05/17/19 07:28 74 05/17/19 03:00 36.6 C 79 20 115/72 100 05/16/19 23:43 88 05/16/19 22:17 36.8 C 89 18 145/91 H 98 Laboratory Results WBC 10.03, hemoglobin 15.1, hematocrit 43.2, platelet count 147, sodium 141, potassium 4.1, BUN 16, creatinine 0.84, glucose 85, calcium 8.7, magnesium 2.0, AST 46, ALT [address] of the head completed yesterday was negative for acute abnormality. No hemorrhage. There is mild age-related atrophy and chronic small vessel ischemic change. I reviewed the images as well as the radiologist interpretation of this test. MRI of the brain is negative for acute or subacute stroke. No acute process. There is age-related atrophy and chronic small vessel ischemic change. No hydrocephalus. I reviewed the images as well as the radiologist interpretation of this test. MRA of the head unremarkable. No stenosis, occlusion, or aneurysm. MRA of the neck unremarkable. No stenosis, occlusion, or dissection within the cervical carotid or vertebral arteries. Electrocardiogram reveals a normal sinus rhythm, 79 bpm.
[2019-05-17 11:57] VITALS: O2SAT 98
[2019-05-17 12:23] LABS: Cdiff Antigen Positive; Cdiff Toxin A+B Negative Cdiff Toxin (Negative)
[2019-05-17 15:12] VITALS: BP 146/85; PULSE 86; TEMP 98.2
[2019-05-17] MEDS ORDERED: ACETAMINOPHEN 500 MG TAB PO STA (16:29)
--- NOTE | 2019-05-17 17:56 | Discharge Summary ---
Date of Service May 17, 2019 Admission HPI Per Admitting Provider Nona Cortez is a 69yo C female with remote history of Burkitt's Lymphoma, prior DVT presenting with vertigo. She states that her symptoms began acutely around 15:00 with dizziness and room spinning as well as nausea, vomiting, double vision. Also with some neck pain and diffuse weakness. Symptoms are worse with turning her head. She denies ear pain, hearing loss, tinnitus or fullness in her ears. Denies URI symptoms. Denies numbness/tingling/weakness. She is unable to ambulate without assistance and getting up to the bathroom caused severe nausea and vomiting. She does have chronic diarrhea since her cancer, reports that this is relatively unchanged, fairly well controlled with Imodium PRN. Patient had a case of vertigo years ago that was much milder - self limiting after 2-3 days. ER Course: Meclilzine 25mg, Zofran 4mg IV, Promethazine 12.5mg, NSS Principal Diagnosis Vertigo Discharge Exam Constitutional WD/WN, vitals as above Eyes PERRL, conjunctivae normal, anicteric sclerae normal visual ring by confrontation, EOM intact bilaterally and + nystagmus (Some very mild horizontal nystagmus with looking to the left); no alignment abnormality ENMT external ear and nose normal, oropharynx normal Neck trachea midline, no thyromegaly Respiratory normal respiratory effort, lungs clear to auscultation Cardiovascular RRR, no murmur, no edema Gastrointestinal (Abdomen) normal bowel sounds, soft, nontender, no hepatosplenomegaly Musculoskeletal Extremities: extremities normal to inspection; no cyanosis and no clubbing Skin no rashes, warm and dry Neurologic PERRL, EOMI, accommodation nl, no face palsy, no dysarthria CN's II-XI intact bilaterally, moves all extremities and awake; no focal motor deficits Speech / Cognition: no expressive aphasia Psychiatric A+Ox3, euthymic affect Discharge Data Allergies Allergy/AdvReac Type Severity Reaction Status Date / Time No Known Allergies Allergy Unknown Verified 05/16/19 17:50 Consultations 05/16/19 19:43 ED Decision to Admit Stat 05/17/19 08:05 Consult Neurology Routine Ordered Studies 05/16/19 17:20 CT head/brain wo con Stat 05/16/19 19:43 MR angio head wo con Stat MR angio neck wo/w con Stat MR brain wo/w con Stat Hospital Course (1) Vertigo: Patient with vertigo, +nystagmus, +ambulatory difficulty due to symptoms. Admitted and ruled out for stroke or other intracranial lesion with negative brain MRI and MRA negative neck MRI No arrhythmias on telemetry Patient had significant improvement with treatment with meclizine She does continue to have some mild horizontal nystagmus but otherwise had an intact neurological exam throughout Seen by neurology and thought to have a peripheral vertigo -Stable for DC to home with meclizine as needed -Close follow-up with PCP -If symptoms not resolving within the week, would recommend referral to ENT (2) Hypokalemia: K=3.3 on admission -Replaced and resolved (3) Diarrhea: Patient reports chronic diarrhea since her cancer decades ago. She manages with Imodium as needed. 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 but was toxin negative -Continue Imodium PRN Stable for discharge to home Total Time Total Time Spent Total Time Spent (In Minutes): Greater than 30 minutes Total Time Includes: Examination of the Patient, Discharge Planning and Medication Reconciliation Discharge Plan Discharge Items Patient Disposition: Home - Self-Care Reason For Visit: VERTIGO Discharge Diagnosis: Vertigo Condition on Discharge: Fair Activity: Resume your previous activity Bathing: No limitations Non-emergency contact: Primary Care Provider Call non-emergency contact if: you have any medication questions and your symptoms worsen Follow-up/Referrals: Arnold Ervin MD [Primary Care Provider] - (Please follow-up with your prima ry care physician within 1 week after discharge) Diet: Regular Addtl Attending Provider Instructions: You are admitted with vertigo and had a work-up for stroke that was all normal. You can take the meclizine as needed for dizziness. Please follow-up with your primary care physician within 1 to 2 weeks after discharge. Pending Studies at Discharge: No Stand-Alone Forms: My [facility] Medications and DC Order Prescriptions: New meclizine 25 mg Tablet 25 mg PO Q6 PRN (Reason: Vertigo) Qty: 20 RF: 0 Continued loperamide [Imodium A-D] 2 mg Tablet PO DIRECTED PRN (Reason: Diarrhea) RF: 0 Discharge Orders: Discharge Order (Routine); Ordered 05/17/19 Ordered By: May Steven Admission Data Admit Date/Time: 05/16/19 20:18 Attending Provider: May Steven Admit Provider: Elida Cuadra Primary Care Provider: Arnold Ervin Other Providers: Elida Cuadra ; Steve Lee Other Interventions: Discharge Summary Assessment (RN) Last Done: 05/17/19 17:54 DC Date/Time DO NOT enter until pt leaves facility: 05/17/19 18:26
== END 2019-05-17 18:26 | disposition home or self-care (01) ==
LOC: 2N 16:37 → ED 16:37 → SUATTDRO 20:18 → 2N 20:44

== ENCOUNTER 2024-10-29 15:06 | Inpatient (IN) ==
--- NOTE | 2024-10-29 15:10 | Emergency Department Note ---
Impression & Plan Chest pain, ST elevation (STEMI) myocardial infarction ED Provider Note ED Provider Note NAME: MEGA BLANC AGE:74 SEX: Female : 1950 ARRIVES VIA: EMS INFORMANT: Patient ED PROVIDER(s): Elizabeth Marquez DO CHIEF COMPLAINT: chest pain, jaw pain HPI: This is a 74 yo female brought in by EMS after complaining of chest pain that radiated into her jaw and b/l UE that occurred around 12:30 during exertion. No radiation into the back. No prior similar episodes and no prior cardiac history. Symptoms improved with rest. EMS EKG concerning for Stemi. [facility] contacted immediately. Patient given ASA by EMS, no other meds prior to arrival. Patient admitted to mild dyspnea and lightheadedness, no nausea or vomiting. She denies any recent fevers/chills or URI symptoms. No recent leg swelling. 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 Repeat EKG by EMS with improvement in ST elevation. Upon arrival patient denied chest or jaw pain but admitted to mild numbness in her left arm. PAST MEDICAL HISTORY:See Below PAST SURGICAL HISTORY:See Below FAMILY HISTORY:See Below SOCIAL HISTORY:See Below HOME MEDICATIONS:See Below ALLERGIES:See Below VITALS:See Below PHYSICAL EXAMINATION: GENERAL: alert, well appearing, well nourished, no distress, non-toxic EYE EXAM: normal conjunctiva, PERRL and EOM's grossly intact OROPHARYNX: no exudate, no erythema, lips, buccal mucosa, and tongue normal and mucous membranes are moist NECK: supple, no nuchal rigidity, no adenopathy, non-tender LUNGS: Clear to auscultation. Normal chest wall mechanics, no w/r/r HEART: no murmurs, S1 normal and S2 normal ABDOMEN: abdomen soft, non-tender, normo-active bowel sounds, no masses, no rebound or guarding. SKIN: no rashes, petechiae, orbruising UPPER EXTREMITIES: upper extremities are grossly normal. FROM, nml pulses b/l. LOWER EXTREMITIES: No pitting edema. FROM, nml pulses b/l. NEURO EXAM: Normal sensorium, cranial nerves II-XII grossly intact, normal speech, no facial droop,nogross weakness of arms, no gross weakness of legs. Gross sensation intact. No ataxia. Vital Signs: reviewed and remarkable Differential Diagnosis: acute coronary syndrome, pericarditis, pulmonary embolus, aortic dissection, pneumonia, pneumothorax, musculoskeletal pain, shingles, GERD, GI bleed, as well as others were considered MEDICAL DECISION MAKING: THis is a 74 yo female who presents to the ER via EMS with chest pain and EKG suggestive of STEMI. Cardiology was contacted prior to her arrival and presented to the ER shortly after her arrival. She was afebrile and VS stable. EKG upon arrival still showing changes concerning for a STEMI although patient denied any current chest pain or dyspnea. Labs drawn and sent, IV established, EKG performed and interpreted at bedside, and patient placed on telemetry. Patient given IV heparin bolus, brilinta, and SL nitro due to persistent hypertension. Initially Dr. Obrien was at bedside, however Dr. Morgan did come to bedside also. CXR had not been performed while in the ER due to difficulty establishing IV access initially and we didn't want to delay proceeding to cath to wait for xray. Patient taken to the laborer steel handling for urgent intervention. Case discussed with Dr. Egan additionally. Consultation(s): 1508: Cards at bedside. 1545: DIscussed with Dr. Egan, [place] hospitalist team. ER Treatment Provided: See below Diagnostics Interpreted By Me: -ECG: NSR at 89, ST elevation noted inferiorly and V4-6, ST depression noted aVL, V1-2, nml axis, nml intervals -Cardiac Monitoring: An order was placed for continuous cardiac monitoring. The monitor shows a rate of 78 with normal sinus rhythm. -Laboratory studies: As stated above and show below. Triage Nursing Note Reviewed Prior/Outside Records Reviewed Critical Care: Critical care of 39 min performed to assess and manage high likelihood of life-threatening STEMI, involving labs and imaging performed with assessment to evaluate chest pain and STEMI diagnosis with frequent reassessment. This time includes bedside time, treatment discussions with patient/family/consultants, documentation time and excludes procedure time. Past Med/Surg History Problem List (Updated 10/30/24 @ 16:21 by May Steven MD) Fatty liver Irritable bowel syndrome with diarrhea CAD (coronary artery disease), [place] coronary artery Hypertension ST elevation (STEMI) myocardial infarction (Acute) Chest pain (Acute) Kidney stones (Chronic) Vertigo Diarrhea Medical History (Updated 10/30/24 @ 16:21 by May Steven MD) Kidney stones DVT (deep venous thrombosis) Burkitt lymphoma Surgical History History of total abdominal hysterectomy and bilateral salpingo-oophorectomy History of cholecystectomy Family History Other Cancer Heart disease Social History (Updated 10/29/24 @ 17:22 by May Steven MD) Smoking Status: Former smoker Tobacco Type: Cigarettes Age Quit Using Tobacco: 45; packs per day: 1; Smoking End Date: 1994; Second Hand Exposure: No; Do You Dip or Chew Tobacco: No; Tobacco Cessation Education Requested by Patient: No Hx Alcohol Use: No Hx Substance Use: No Preferred Language: Uzbek Communication Ability: Effective Automobile Engine Assembler Required: No Beliefs That Will Affect Care: None marital status: Current Living Situation: Spouse Other Information That Helps Us Care for You: No Feels Safe at Home: Yes Safety Concerns: Feels Safe At This Time Assistive Devices: None Allergies Allergies Allergy/AdvReac Type Severity Reaction Status Date / Time No Known Allergies Allergy Unknown Verified 10/29/24 15:27 Home Meds Home Medications Medication Instructions Recorded Confirmed No Known Home Medications 10/29/24 10/29/24 Results & Data (ED) Vital Signs Vital Signs - 24 hr 10/29/24 15:10 10/29/24 15:14 10/29/24 15:28 Temperature 36.8 C Temperature Source Oral Pulse Rate 101 H 93 H Pulse Rate [Apical] 113 H Pulse Rhythm Regular Pulse Rhythm [Apical] Regular Pulse Strength [Apical] Respiratory Rate 18 18 Respiratory Effort / Characteristics Non-Labored Spontaneous Non-Labored Spontaneous Respiratory Depth Normal Normal Respiratory Pattern Regular Blood Pressure 186/100 H Blood Pressure [Right Arm] 162/106 H Blood Pressure Mean 128 Blood Pressure Mean [Right Arm] 124 Pulse Oximetry 98 96 Oxygen Delivery Method Room Air Room Air Sepsis Recent Fever Within 48 Hours No Sepsis New/Unexplained Change in Mental Status No Sepsis Action Taken by Nursing No Action Required 10/29/24 15:32 Temperature Temperature Source Pulse Rate Pulse Rate [Apical] 94 H Pulse Rhythm Pulse Rhythm [Apical] Regular Pulse Strength [Apical] Normal Respiratory Rate 18 Respiratory Effort / Characteristics Non-Labored Spontaneous Respiratory Depth Normal Respiratory Pattern Regular Blood Pressure Blood Pressure [Right Arm] 126/92 Blood Pressure Mean Blood Pressure Mean [Right Arm] 103 Pulse Oximetry 95 Oxygen Delivery Method Room Air Sepsis Recent Fever Within 48 Hours Sepsis New/Unexplained Change in Mental Status Sepsis Action Taken by Nursing Laboratory Data 10/30/24 05:36 10/30/24 05:36 Lab Results 10/29/24 10/29/24 10/29/24 Range/Units 15:16 15:20 15:24 WBC 6.77 (4.8-10.8) K/ul RBC 5.02 (4.20-5.40) M/uL Hgb 15.8 (12.0-16.0) g/dl POC Hgb 16.0 (12.0-16.0) g/dl Hct 45.7 (37.0-47.0) % POC Hct 47 (37-47) % MCV 91.0 (80.0-100.0) fL MCH 31.5 (25.0-34.0) pg MCHC 34.6 (32.0-36.0) g/dL RDW Std Deviation 41.2 (36.4-46.3) fL RDW Coeff of Veena 12.5 (11.5-14.5) % Plt Count 146 (130-400) K/uL MPV 12.9 H (9.4-12.4) fL Immature Gran % (Auto) 0.3 % Neut % (Auto) 71.4 % Lymph % (Auto) 20.2 % Clayton % (Auto) 6.6 % Eos % (Auto) 0.9 % Baso % (Auto) 0.6 % Neut # (Auto) 4.83 (1.40-6.50) K/uL Lymph # (Auto) 1.37 (1.20-3.40) K/uL Clayton # (Auto) 0.45 (0.11-0.59) K/uL Eos # (Auto) 0.06 (0.00-0.50) K/uL Baso # (Auto) 0.04 (0.00-0.20) K/uL Immature Gran # (Auto) 0.02 (0.01-0.20) K/uL PT 11.0 (9.0-12.0) Seconds INR 1.0 (0.9-1.1) APTT 25 (21-31) Seconds PTT Ratio 0.9 POC Sodium 141 (135-144) mmol/L Sodium 141 (136-145) mmol/L POC Potassium 4.1 (3.3-5.0) mmol/L Potassium 4.2 (3.5-5.1) mmol/L POC Chloride 104 (101-112) mmol/L Chloride 105 (98-107) mmol/L Carbon Dioxide 27 (21-32) mmol/L POC Total CO2 24 (24-31) mmol/L Anion Gap 9 (3-11) POC Anion Gap 18.0 (16-25) mmol/L POC BUN 13 (7-18) mg/dl BUN 12 (6-23) mg/dl Creatinine 0.76 (0.6-1.2) mg/dl POC Creatinine 0.9 (0.6-1.3) mg/dl Est Cr Clr Drug Dosing 60.5 ml/min eGFR 83.20 BUN/Creatinine Ratio 15.8 (10-20) Glucose 105 H (70-99(Fasting)) mg/dl POC Glucose (other) 106 H (70-99) mg/dl Calcium 10.0 (8.6-10.3) mg/dl POC Ioniz Calcium Emilee 1.20 (1.12-1.32) mmol/l Magnesium 2.0 (1.7-2.4) mg/dl Total Bilirubin 1.5 H (0.2-1.0) mg/dl AST 37 (13-39) U/L ALT 31 (7-52) U/L Alkaline Phosphatase 71 (34-104) U/L Total Creatine Kinase 53 (26-192) U/L Troponin I High Sens 46.6 H (0-14) pg/ml B-Natriuretic Peptide 54 (0-100) pg/ml Total Protein 8.0 (6.0-8.3) gm/dl Albumin 4.8 (3.4-5.0) gm/dl Globulin 3.2 (2.5-4.0) gm/dl Albumin/Globulin Ratio 1.5 (0.9-2) Lipase 52 (11-82) U/L TSH 3.474 (0.300-4.500) uIu/ml Blood Type A Positive Antibody Screen NEGATIVE Administered Medications Acetaminophen (Acetaminophen 325 Mg Tab) 650 mg PO Q4H PRN PRN Reason: MILD Pain (Scale 1,2,3) Stop: 11/28/24 16:40 Last Admin: 10/30/24 06:43 Dose: 650 mg Documented By: CHRIS Aspirin (Aspirin 81 Mg Ectab) [facility] [place] Stop: 11/29/24 08:59 Last Admin: 10/30/24 09:49 Dose: 81 mg Documented By: PRASANNA Atorvastatin Calcium (Atorvastatin 40 Mg Tab) 80 mg PO [facility] Stop: 11/29/24 08:59 Last Admin: 10/30/24 09:47 Dose: 80 mg Documented By: PRASANNA Losartan Potassium (Losartan Potassium 25 Mg Tab) [facility] [place] Stop: 11/29/24 08:59 Last Admin: 10/30/24 09:47 Dose: 25 mg Documented By: PRASANNA Metoprolol Tartrate (Metoprolol Tartrate 25 Mg Tab) 12.[address] [facility] Stop: 11/28/24 20:59 Last Admin: 10/30/24 09:48 Dose: 12.5 mg Documented By: Admin: 10/29/24 22:01 Dose: 12.5 mg Documented By: AIDAN Pantoprazole Sodium (Pantoprazole 40 Mg Tab) [facility] [place] Stop: 11/29/24 08:59 Last Admin: 10/30/24 09:49 Dose: 40 mg Documented By: PRASANNA Ticagrelor (Ticagrelor 90 Mg Tab) [address] [facility] Stop: 11/29/24 08:59 Last Admin: 10/30/24 09:47 Dose: 90 mg Documented By: PRASANNA Discontinued Medications Fentanyl Citrate (Fentanyl Citrate Pf 100 Mcg/2 Ml Vial) Confirm Administered Dose 100 mcg .ROUTE .STK-MED [facility] Stop: 10/29/24 15:45 Last Increment: 10/29/24 16:19 Dose: 25 mcg Documented By: GEM Increment: 10/29/24 16:15 Dose: 50 mcg Documented By: GEM Fentanyl Citrate (Fentanyl Citrate Pf 100 Mcg/2 Ml Vial) Confirm Administered Dose 100 mcg .ROUTE .STK-MED [facility] Stop: 10/30/24 13:31 Last Increment: 10/30/24 15:13 Dose: 75 mcg Documented By: DANGELO Heparin Sodium (Porcine) (Heparin Sod (Porcine) 1000 Unit/Ml) 5,000 units IV NOW ONE Stop: 10/29/24 15:09 Last Admin: 10/29/24 15:16 Dose: 5,000 units Documented By: REE Co-signed By: FOREST Heparin Sodium (Porcine) (Heparin (Porcine) 1000 Unit/Ml 10 Ml (Sales Ledger Administrator Use Only)) Confirm Administered Dose 10,000 units .ROUTE .STK-MED ONE Stop: 10/29/24 15:45 Last Admin: 10/29/24 16:15 Dose: 4,000 units Documented By: GEM Heparin Sodium (Porcine) (Heparin (Porcine) 1000 Unit/Ml 10 Ml (Sales Ledger Administrator Use Only)) Confirm Administered Dose 10,000 units .ROUTE .STK-MED ONE Stop: 10/30/24 13:31 Last Admin: 10/30/24 15:13 Dose: 10,000 units Documented By: DANGELO Heparin Sodium/Sodium Chloride (Heparin In Nss Infusion 1000 Unit/500 Ml (2 U/Ml) Bag) Confirm Administered Dose 3,000 units IV .STK-MED ONE Stop: 10/29/24 15:45 Last Admin: 10/29/24 16:14 Dose: 3,000 units Documented By: LOYD Heparin Sodium/Sodium Chloride (Heparin In Nss Infusion 1000 Unit/500 Ml (2 U/Ml) Bag) Confirm Administered Dose 3,000 units IV .STK-MED ONE Stop: 10/30/24 13:31 Last Admin: 10/30/24 14:03 Dose: 3,000 units Documented By: DANGELO Ioversol (Optiray 350) Confirm Administered Dose 1 ml .ROUTE .STK-MED ONE Stop: 10/29/24 15:46 Last Admin: 10/29/24 16:23 Dose: 80 ml Documented By: LOYD Ioversol (Optiray 350) Confirm Administered Dose 1 ml .ROUTE .STK-MED ONE Stop: 10/30/24 13:32 Last Admin: 10/30/24 15:14 Dose: 60 ml Documented By: DANGELO Midazolam HCl (Midazolam Hcl 1 Mg/Ml 2ml Vial) Confirm Administered Dose 2 mg .ROUTE .STK-MED ONE Stop: 10/29/24 15:45 Last Admin: 10/29/24 16:15 Dose: 2 mg Documented By: GEM Midazolam HCl (Midazolam Hcl 1 Mg/Ml 2ml Vial) Confirm Administered Dose 2 mg .ROUTE .STK-MED ONE Stop: 10/30/24 13:31 Last Admin: 10/30/24 15:14 Dose: 2 mg Documented By: DANGELO Midazolam HCl (Midazolam Hcl 1 Mg/Ml 2ml Vial) Confirm Administered Dose 2 mg .ROUTE .STK-MED ONE Stop: 10/30/24 14:36 Last Increment: 10/30/24 15:14 Dose: 1 mg Documented By: DANGELO Nicardipine HCl (Nicardipine 2,000 Mcg/20 Ml Syr) Confirm Administered Dose 2,000 mcg .ROUTE .STK-MED ONE Stop: 10/29/24 15:45 Last Admin: 10/29/24 16:14 Dose: 2,000 mcg Documented By: LOYD Nicardipine HCl (Nicardipine 2,000 Mcg/20 Ml Syr) Confirm Administered Dose 2,000 mcg .ROUTE .STK-MED ONE Stop: 10/30/24 13:32 Last Admin: 10/30/24 14:03 Dose: 2,000 mcg Documented By: LOYD Nitroglycerin (Nitroglycerin Sl 0.4 Mg/Tab Tab) Confirm Administered Dose 0.4 mg .ROUTE .STK-MED ONE Stop: 10/29/24 15:24 Last Admin: 10/29/24 15:24 Dose: 0.4 mg Documented By: REE Nitroglycerin/Dextrose (Nitroglycerin/D5w 100mcg/Ml 20ml Syr) Confirm Administered Dose 2,000 mcg .ROUTE .STK-MED ONE Stop: 10/29/24 15:45 Last Admin: 10/29/24 16:14 Dose: 2,000 mcg Documented By: LOYD Nitroglycerin/Dextrose (Nitroglycerin/D5w 100mcg/Ml 20ml Syr) Confirm Administered Dose 2,000 mcg .ROUTE .STK-MED ONE Stop: 10/30/24 13:32 Last Admin: 10/30/24 14:03 Dose: 2,000 mcg Documented By: LOYD Ticagrelor (Ticagrelor 90 Mg Tab) 180 mg PO ONE ONE Stop: 10/29/24 15:09 Last Admin: 10/29/24 15:16 Dose: 180 mg Documented By: REE Discharge Plan Visit Data Chief Complaint: Heart Alert Stated Complaint: CHEST PAIN ED Provider: Elizabeth Marquez Discharge Problem: Chest pain, ST elevation (STEMI) myocardial infarction Patient Disposition: Admitted As Inpatient Discharge Instructions Interventions: ED Discharge Assessment Last Done: 10/29/24 15:39
[2024-10-29] MEDS: TICAGRELOR 90 MG TAB PO ONE (15:16)
[2024-10-29] MEDS: HEPARIN SOD (PORCINE) 1000 UNIT/ML IV ONE (15:16)
[2024-10-29] MEDS: NITROGLYCERIN SL 0.4 MG/TAB TAB ONE (15:24)
[2024-10-29 15:33] LABS: iSTAT Creatinine 0.9 mg/dl (0.6-1.3); iSTAT Ionized Calcium 1.2 mmol/l (1.12-1.32); iSTAT Potassium 4.1 mmol/L (3.3-5.0)
[2024-10-29 15:36] LABS: Basophils # (auto) 0.04 K/uL (0.00-0.20); Basophils % (auto) 0.6 %; Eosinophils # (auto) 0.06 K/uL (0.00-0.50); Eosinophils % (auto) 0.9 %; Hematocrit (blood only) 45.7 % (37.0-47.0); Hemoglobin 15.8 g/dl (12.0-16.0); Immature Granulocytes # (auto) 0.02 K/uL (0.01-0.20); Immature Granulocytes % (auto) 0.3 %; Lymphocytes # (auto) 1.37 K/uL (1.20-3.40); Lymphocytes % (auto) 20.2 %; Mean Corpuscular Hemoglobin 31.5 pg (25.0-34.0); Mean Corpuscular Hgb Conc 34.6 g/dL (32.0-36.0); Mean Platelet Volume 12.9 fL (9.4-12.4); Monocytes # (auto) 0.45 K/uL (0.11-0.59); Monocytes % (auto) 6.6 %; Neutrophils # (auto) 4.83 K/uL (1.40-6.50); Neutrophils % (auto) 71.4 %; Platelet Count 146 K/uL (130-400); RDW Coefficient of Variation 12.5 % (11.5-14.5); RDW Standard Deviation 41.2 fL (36.4-46.3); Red Blood Count 5.02 M/uL (4.20-5.40); White Blood Count 6.77 K/ul (4.8-10.8)
--- NOTE | 2024-10-29 15:48 | Pre Anesthesia Assessment ---
Date of Service October 29, 2024 Pre Sedation Assessment Vital Signs Temp Pulse Pulse Resp BP BP Pulse Ox 10/29/24 15:32 94 H 18 126/92 95 10/29/24 15:28 113 H 18 162/106 H 96 10/29/24 15:14 93 H 10/29/24 15:10 98.2 F 101 H 18 186/100 H 98 O2 Del Method 10/29/24 15:32 Room Air 10/29/24 15:28 Room Air 10/29/24 15:14 10/29/24 15:10 Room Air Cardiovascular + regular rate Respiratory + respiratory effort normal Pre-Sedation Airway Assessment Smoking Status: Never smoker Hx Sleep Apnea: No Hx Difficult Intubation: No Short, Thick Neck: No Thyromental Distance: < 3.5 Finger Breadths Oral Cavity: + Dental Abnormalities Mallampati Class: III ASA: ASA4 Procedure Planning Contraindications for Sedation: none Current Medications Reviewed: Yes Notes The planned sedation has been discussed with the patient. Informed Consent was obtained. I have identified the patient, determined the appropriateness of sedation and have assessed the patient immediately prior to the procedure. All medicine(s) and interventions are by my order.
--- NOTE | 2024-10-29 15:50 | Cardiology Consultation ---
Date of Consultation October 29, 2024 Assessment & Plan (1) ST elevation (STEMI) myocardial infarction: (2) Hypertension: Plan ASSESSMENT/PLAN: 1. STEMI: Chest pain resolved with some residual left arm discomfort. Discussed ECG findings. Recommended emergent cardiac catheterization. Risk and benefits were discussed with her in detail. She was agreeable to proceed. She has already received aspirin prehospital. Recommended Brilinta loading and heparin. These were administered in the ER. Recommend high intensity statin therapy. Echo during this hospitalization. 2. Hypertension: Nitroglycerin administered in the ER with improvement of blood pressure. No formal diagnosis and may be reactive to ongoing pain. 3. Disposition: Patient care discussed with ER physician, Dr. Marquez. Patient care also discussed with program manager, Dr. Morgan, who manan l take her emergently to the cardiac [facility]. Attempts were made to call patient's , but no answer. 35 minutes of critical care time spent, including managing patient in the ER, reviewing available records, coordinating care, and completing documentation. Thank you for allowing me to participate in the care of your patient. Please call for any other questions or concerns. Sincerely, Jaret Obrien M.D. History of Present Illness Reason for Consultation: STEMI Requesting Physician: Dr. Marquez Attending Physician: Dr. Marquez History of Present Illness Mrs. Cortez is a very pleasant 74-year-old female with a history significant for Burkitt's lymphoma (1990s s/p surgery and chemo) and previous left upper extremity port with left upper extremity DVT. At approximately 12:30 PM today, she was packing a suitcase and developed a substernal chest achiness that radiated to bilateral arms. There was diaphoresis but no shortness of breath. She felt nauseated but did not vomit. She eventually summoned EMS. Prehospital, she was noted to have inferolateral ST elevation. Without intervention, her chest discomfort spontaneously resolved and route, however left arm ache/tingling remained. She took her blood pressure at home and noted 176/107 mmHg, which is not typical for her. She remained hypertensive according to ER/EMS. While at the bedside, she remained chest pain-free. She denies melena, hematochezia, hematuria, or other bleeding. She denies syncope, edema, palpitations. She has had the following studies/procedures: 1. Echo 04/01/2024 [facility]: Normal LV size, wall motion, systolic function. EF 60-65%. Mild MR. Review of systems: As above. Family history: Multiple family members with premature CAD. Nephew in 2023 underwent PCI with what she describes as perforation requiring emergent surgery. Social history: She quit smoking in her 40s. Denies significant alcohol or drug abuse. Lives at home with her . She has 3 children. She was unaccompanied in the ER. Allergies Allergy/AdvReac Type Severity Reaction Status Date / Time No Known Allergies Allergy Unknown Verified 10/29/24 15:27 Home Medications Medication Instructions Recorded Confirmed Type No Known Home Medications 10/29/24 10/29/24 History Patient History Medical History (Updated 10/29/24 @ 16:00 by Alfredo Obrien MD) Kidney stones DVT (deep venous thrombosis) Burkitt lymphoma Surgical History History of total abdominal hysterectomy and bilateral salpingo-oophorectomy History of cholecystectomy Family History Other Cancer Heart disease Social History Smoking Status: Never smoker Hx Alcohol Use: No Hx Substance Use: No Preferred Language: Lebanese Communication Ability: Effective Beliefs That Will Affect Care: None marital status: Current Living Situation: Spouse Feels Safe at Home: Yes Assistive Devices: None Physical Exam Physical Exam: Gen.: No acute distress. Alert and oriented. HEENT: Anicteric sclera. Neck: No JVD. No bruits. Normal carotid upstrokes bilaterally. Cardiac: Regular. Normal S1-S2. No murmurs, rubs, or gallops. Pulmonary: Clear to auscultation bilaterally without wheezes, rales, or rhonchi. Abdomen: Soft, nontender, nondistended, with normoactive bowel sounds. No bruits noted. Extremities: 2+ radial pulses bilaterally. 2+ posterior tibialis pulses bilaterally. No pitting edema or cyanosis. Results & Data Vital Signs (Past 12 Hours) Vital Signs Temp Pulse Pulse Resp BP BP Pulse Ox 10/29/24 15:32 94 H 18 126/92 95 10/29/24 15:28 113 H 18 162/106 H 96 10/29/24 15:14 93 H 10/29/24 15:10 36.8 C 101 H 18 186/100 H 98 O2 Del Method 10/29/24 15:32 Room Air 10/29/24 15:28 Room Air 10/29/24 15:14 10/29/24 15:10 Room Air Laboratory Results Laboratory Results - last 24 hr 10/29/24 10/29/24 10/29/24 15:16 15:20 15:24 WBC 6.77 RBC 5.02 Hgb 15.8 POC Hgb 16.0 Hct 45.7 POC Hct 47 MCV 91.0 MCH 31.5 MCHC 34.6 RDW Std Deviation 41.2 RDW Coeff of Veena 12.5 Plt Count 146 MPV 12.9 H Immature Gran % (Auto) 0.3 Neut % (Auto) 71.4 Lymph % (Auto) 20.2 Schleicher % (Auto) 6.6 Eos % (Auto) 0.9 Baso % (Auto) 0.6 Neut # (Auto) 4.83 Lymph # (Auto) 1.37 Schleicher # (Auto) 0.45 Eos # (Auto) 0.06 Baso # (Auto) 0.04 Immature Gran # (Auto) 0.02 PT Pending INR Pending APTT Pending PTT Ratio Pending POC Sodium 141 Sodium 141 POC Potassium 4.1 Potassium 4.2 POC Chloride 104 Chloride 105 Carbon Dioxide 27 POC Total CO2 24 Anion Gap 9 POC Anion Gap 18.0 POC BUN 13 BUN 12 Creatinine 0.76 POC Creatinine 0.9 Est Cr Clr Drug Dosing 60.5 eGFR 83.20 BUN/Creatinine Ratio 15.8 Glucose 105 H POC Glucose (other) 106 H Calcium 10.0 POC Ioniz Calcium Emilee 1.20 Magnesium 2.0 Total Bilirubin 1.5 H AST 37 ALT 31 Alkaline Phosphatase 71 Total Creatine Kinase 53 Troponin I High Sens Pending B-Natriuretic Peptide Pending Total Protein 8.0 Albumin 4.8 Globulin 3.2 Albumin/Globulin Ratio 1.5 Lipase 52 TSH Pending Blood Type Pending Antibody Screen Pending Diagnostic Findings Labs reviewed and notable for normal renal function, normal potassium, normal magnesium, normal blood counts, normal transaminase levels. ECGs personally reviewed: ECG for 925 1454: Sinus [address] elevation. ECG 10/29/2024 at 1433: Sinus rhythm [address] elevation. ECG for 925 1511: Sinus rhythm [address] elevation. Medications Administered Discontinued Medications Heparin Sodium (Porcine) (Heparin Sod (Porcine) 1000 Unit/Ml) 5,000 units IV NOW ONE Stop: 10/29/24 15:09 Last Admin: 10/29/24 15:16 Dose: 5,000 units Documented By: REE Co-signed By: FOREST Nitroglycerin (Nitroglycerin Sl 0.4 Mg/Tab Tab) Confirm Administered Dose 0.4 mg .ROUTE .STK-MED ONE Stop: 10/29/24 15:24 Last Admin: 10/29/24 15:24 Dose: 0.4 mg Documented By: REE Ticagrelor (Ticagrelor 90 Mg Tab) 180 mg PO ONE ONE Stop: 10/29/24 15:09 Last Admin: 10/29/24 15:16 Dose: 180 mg Documented By: REE PG Care Time/CCT Total # of Minutes Spent Total Time Spent with Patient: Total time spent is greater than 50% in coordination of care (as documented) at patient's floor/unit and/or counseling patient: Critical Care Time: Yes Total Critical Care Time: 35 Coding Level of Care Code 67624 CRITICAL CARE 1ST 30-74M Diagnoses ST elevation (STEMI) myocardial infarction I21.3 Hypertension I10 Additional Codes Critical Care Time - Critical Care Time: Yes ([id number])
[2024-10-29 15:51] LABS: Albumin Globulin Ratio 1.5 (0.9-2); Albumin Level 4.8 gm/dl (3.4-5.0); BUN Creatinine Ratio 15.8 (10-20); Bilirubin,Total 1.5 mg/dl (0.2-1.0); Creatinine Clr Calc Pharmacy 60.5 ml/min; Globulin 3.2 gm/dl (2.5-4.0); Potassium 4.2 mmol/L (3.5-5.1)
--- NOTE | 2024-10-29 15:51 | History & Physical Report ---
Date of Service October 29, 2024 Assessment & Plan (1) ST elevation (STEMI) myocardial infarction: (2) CAD (coronary artery disease), [place] coronary artery: (3) Hypertension: (4) Irritable bowel syndrome with diarrhea: Plan This pt is a 74-year-old female with PMH of HTN, Burkitt's lymphoma, IBS, and kidney stones who p/w STEMI, received 1 stent to circumflex for 99% stenosis. ALso with 80% RCA stenosis without intervention acutely. SHe had some accelerated idioventricular rhythm during cath which resolved. #STEMI/Severe CAD-with very prominent +FH, HTN as risk factors. Now s/p stent to Cx, but with residual obstructive disease in RCA that needs interval intervention. Chest pain free, stable post cath w. intervention -admit to PCU for arrhythmia monitoring -start ASA, Brilinta, high intensity statin, metoprolol, losartan -check ECHO; trend trop till peaks -follow CBC, BMP, mag in AM and keep lytes replete -NPO after midnight and plan for repeat intervention 10/30 of RCA -check A1C, lipid panel in AM #HTN-BPs have been intermittently elevated as outpt and was started on HCTZ/triamterene which she reports dropped her BP very low and caused lightheadedness and was stopped. Not currently on meds -starting metoprolol, losartan here -monitor for hypotension #Hyperbilirubinemia-TBili mildly elevated here at 1.5 and has been elevated in the past. No abd pain, could be Gilbert's -follow LFTs -if persists, consider liver imaging #H/o Burkitt's lymphoma-resolved, no acute issues #IBS-D-has chronic, frequent diarrhea for many years -continue Imodium prn which she takes at home DVT prophylaxis-SCDs, IV heparin Disposition: Admit to PCU History of Present Illness Chief Complaint: Chest pain Primary Care Provider: Tayler Castellano is a 74-year-old female with PMH of HTN, Burkitt's lymphoma, IBS, and kidney stones. She presented via EMS on 10/29 for chest pressure with bilateral arm and jaw numbness that occurred around 12:30 PM when she was lifting an empty suitcase onto her bed to pack clothing. She reported chest pain/pressure with radiation to the jaw bilaterally, as well as some sweating. No SOB. This pressure went away, but she developed aching/numbness in her left upper extremity. No personal history of heart disease; however, significant family history for MS in her mother, brother, and nephew all in their mid 40s. She has been walking one mile per day and never had chest pain or GONZALEZ. EMS administered 324 mg p.o. aspirin en route. Patient was heart alert in the emergency department after ECG with inferior and lateral ST elevations. She was found to have a 99% distal circumflex stenosis and had one stent placed. She also has other nonculprit disease in RCA that will be treated later. I saw her after return from lab tester and she is chest pain free, denies SOB, no other concerns. ED course:Heparin IV bolus, Brilinta 180 mg p.o., Nitroglycerin 0.4 mg p.o. SHe is admitted for STEMI, severe CAD Allergies Allergy/AdvReac Type Severity Reaction Status Date / Time No Known Allergies Allergy Unknown Verified 10/29/24 15:27 Home Medications Medication Instructions Recorded Confirmed Type No Known Home Medications 10/29/24 10/29/24 History Past Med/Surg History Problem List Irritable bowel syndrome with diarrhea CAD (coronary artery disease), [place] coronary artery Hypertension ST elevation (STEMI) myocardial infarction (Acute) Chest pain (Acute) Kidney stones (Chronic) Vertigo Diarrhea Medical History Kidney stones DVT (deep venous thrombosis) Burkitt lymphoma Surgical History History of total abdominal hysterectomy and bilateral salpingo-oophorectomy History of cholecystectomy Family History Other Cancer Heart disease Social History (Updated 10/29/24 @ 17:22 by May Steven MD) Smoking Status: Former smoker Tobacco Type: Cigarettes Age Quit Using Tobacco: 45; packs per day: 1; Smoking End Date: 1994; Second Hand Exposure: No; Do You Dip or Chew Tobacco: No; Tobacco Cessation Education Requested by Patient: No Hx Alcohol Use: No Hx Substance Use: No Preferred Language: Azeri Communication Ability: Effective Commercial Real Estate Lender Required: No Beliefs That Will Affect Care: None marital status: Current Living Situation: Spouse Other Information That Helps Us Care for You: No Feels Safe at Home: Yes Safety Concerns: Feels Safe At This Time Assistive Devices: None Review of Systems Review of Systems: All systems reviewed & are unremarkable except as noted in HPI & below Physical Exam Constitutional: WD/WN, vitals as above Neck: trachea midline, no thyromegaly Respiratory: normal respiratory effort, lungs clear to auscultation Cardiovascular: RRR, no murmur, no edema Vessels: dorsalis pedis pulses present right wrist with TR band in place Chest (Breasts): Chest: normal inspection of chest Gastrointestinal (Abdomen): normal bowel sounds, soft, nontender, no hepatosplenomegaly Musculoskeletal: Extremities: no cyanosis and no clubbing Skin: no rashes, warm and dry Neurologic: moves all extremities and awake; no focal motor deficits Psychiatric: A+Ox3, euthymic affect Lymphatic: no lymphedema Results & Data Results & Data Vital Signs (Past 12 Hours) Vital Signs Temp Pulse Pulse Resp BP BP Pulse Ox 10/29/24 15:32 94 H 18 126/92 95 10/29/24 15:28 113 H 18 162/106 H 96 10/29/24 15:14 93 H 10/29/24 15:10 36.8 C 101 H 18 186/100 H 98 O2 Del Method 10/29/24 15:32 Room Air 10/29/24 15:28 Room Air 10/29/24 15:14 10/29/24 15:10 Room Air Laboratory Results Abnormal lab results 10/29/24 10/29/24 Range/Units 15:16 15:20 MPV 12.9 H (9.4-12.4) fL Glucose 105 H (70-99(Fasting)) mg/dl POC Glucose (other) 106 H (70-99) mg/dl Total Bilirubin 1.5 H (0.2-1.0) mg/dl CBC, CMP, troponin, TSH, LFTs, lipase reviewed ECG Additional Comments: ECG revealed ST elevations in the inferolateral leads; acute MS/STEMI, NSR Code Status & VTE Plan Code Status FULL CODE VTE Prophylaxis Plan VTE Prophylaxis will be ordered: Yes PG Care Time/CCT Total # of Minutes Spent Total Time Spent with Patient: Total time spent is greater than 50% in coordination of care (as documented) at patient's floor/unit and/or counseling patient: Coding [place] [address] INT INP/OBS CARE MIN Patient Type Established Medical Decision Making High Complexity Diagnoses ST elevation (STEMI) myocardial infarction I21.3 CAD (coronary artery disease), [place] coronary artery I25.10 Hypertension I10 Irritable bowel syndrome with diarrhea K58.0
[2024-10-29 15:56] LABS: Troponin I High Sensitivity 46.6 pg/ml (0-14)
[2024-10-29 15:59] LABS: Partial Thromboplastin Ratio 0.9; Partial Thromboplastin Time 25 Seconds (21-31)
[2024-10-29 16:02] LABS: Thyroid Stimulating Hormone 3.474 uIu/ml (0.300-4.500)
[2024-10-29] MEDS: NITROGLYCERIN/D5W 100MCG/ML 20ML SYR ONE (16:14)
[2024-10-29] MEDS: niCARdipine 2,000 MCG/20 ML SYR ONE (16:14)
[2024-10-29] MEDS: HEPARIN (PORCINE) 1000 UNIT/ML 10 ML (CATH LAB USE ONLY) ONE (16:15)
[2024-10-29] MEDS: fentaNYL citrate PF 100 MCG/2 ML VIAL ONE (16:15)
[2024-10-29] MEDS: MIDAZOLAM HCL 1 MG/ML 2ML VIAL ONE (16:15)
[2024-10-29] MEDS: OPTIRAY 350 ONE (16:23)
--- NOTE | 2024-10-29 16:37 | Post Anesthesia Assessment ---
Date of Service October 29, 2024 Post Sedation Assessment Vital Signs Temp Pulse Pulse Resp BP BP Pulse Ox 10/29/24 15:32 94 H 18 126/92 95 10/29/24 15:28 113 H 18 162/106 H 96 10/29/24 15:14 93 H 10/29/24 15:10 98.2 F 101 H 18 186/100 H 98 O2 Del Method 10/29/24 15:32 Room Air 10/29/24 15:28 Room Air 10/29/24 15:14 10/29/24 15:10 Room Air Recovery Score Activity: Moves 4 extremities Respiration: Deep Breath/Cough Circulation: +/-20% PreAnes Value Consciousness: Fully Awake Oxygen Saturation: O2 needed for >90% Discharge Sedation Level of Care: Fast Track Phase II Post Sedation Plan On clinical assessment, the patient appears to have tolerated the sedation without complications. Patient is recovering as anticipated. Patient will continue to be monitored by nursing and may be discharged when sedation discharge criteria are met per below protocol. Upon Completions of procedure up to 15 minutes continue every 5 minute vital signs and the P.A.R. score; then discharge to a Phase I or Fast Track to Phase II per the following guidelines: * Discharge Patient to appropriate Phase II area if PAR is 8 or greater or return to pre- procedure baseline. The post - procedure orders will be as directed. * If PAR score is less than 8 or not return to pre-procedure baseline then patient will follow Phase I monitoring till PAR is reached for Phase II. The Phase I may be done in procedure room or may call to secure a Phase I area. * If naloxone or flumazenil are used for reversal, hold in Phase I for continued monitoring from when last reversal dose was given for a minimum of 60 minutes or longer pending the nurse and/or physician discretion of patient condition before discharge to Phase II. Please call the Sedation Physician to re-evaluate and complete post-note for discharge to Phase II area. Sedation Discharge Instructions to be given to the patient at discharge to home.
[2024-10-29] MEDS ORDERED: ONDANSETRON INJ 2 MG/ML 2 ML VIAL IV PRN (16:41)
[2024-10-29] MEDS ORDERED: NITROGLYCERIN SL 0.4 MG/TAB TAB SL PRN (16:47)
--- NOTE | 2024-10-29 16:54 | Cardiac Catheterization ---
[facility] Data: [employer] Cardiac Status Clinical evaluation leading to the procedure CAD Presenation: STEMI Anginal Classification: CCS IV Diagnostic Physicians Name: Sanford Morgan MD Closure Device Recommendations: PCI without planned CABG Cardiac Cath Procedure Full Procedure Date October 29, 2024 Pre-Procedure Diagnosis Pre-Procedure Diagnosis: STEMI AUC Score AUC Score: 9 Post-Procedure Diagnosis Post-Procedure Diagnosis: Severe CAD, Successful PCI and Normal Intracardiac Pressures Procedure(s) Performed Procedure(s) Performed: Coronary Angiography, Left Heart Cath and Drug Eluting Stent Endband Cutter Hand Sanford Morgan MD [employer](s) Shahriar Estimated Blood Loss Estimated Blood Loss: 20 Medication(s) Medication(s): Fentanyl, Heparin, Lidocaine 1%, Nicardipine, Nitroglycerin and Versed Medication(s): Ticagrelor Summary of Findings Indication: STEMI/Heart Alert Access: 6 Fr slender right radial artery Catheters: [place], EBU 3.5 guide, pigtail Findings: LM -normal caliber, no significant disease LAD -medium caliber, 30% proximal stenosis, diffuse 30-40% mid segment disease, distal vessel without significant disease and wraps around apex. Small D1, D2 without significant disease. Circumflex -medium caliber, proximal luminal regularities, 30-40% mid segment stenosis, 99% acute distal stenosis with HEIDY II flow in left PLB. OM 2 without significant disease. Left PLB partially fills retrograde via collaterals. RCA -dominant, medium caliber, 25% proximal, 80% mid, 80% distal stenosis just prior to bifurcation. RPDA 50% ostial remainder of vessel without significant disease. Very small right posterior knee branch with 90% ostial stenosis. LVEDP -14 -- PCI -- Antithrombotic therapy: Heparin, ticagrelor Procedure: Left main cannulated with EBU 3.5 guide BMW wire passed across lesion into distal left PLB Distal circumflex lesion predilated with 2.0 compliant balloon Dilated lesion stented with 2.5 x 18 mm [place] drug-eluting stent Stent post-dilated with 2.75 noncompliant balloon IC vasodilators administered for spasm Post procedure HEIDY 3 flow, stent well expanded with minimal residual stenosis and no apparent cardiac complications. Arterial Closure: TR band Summary: 1. Acute 99% distal circumflex with HEIDY II flow 2. Severe non-culprit coronary artery disease - 80% mid RCA, 80% distal RCA prior to bifurcation with PDA. Very small R-PAV branch 90% ostial. 30% proximal, diffuse 30-40% mid LAD 3. Normal intracardiac filling pressure 4. Successful PCI of distal circumflex with single drug-eluting stent (2.5 x 18 mm [place]; postdilated with 2.75 NC). Recommendations: Admit to PCU for continued monitoring Loaded with ticagrelor 180 mg in ED Continue dual-antiplatelet therapy for at least 1 year. Trend troponins until peak, Check Echo Uptitrate beta-dana/ARB as BP allows High-dose statin Consult cardiac Rehab Plan on staged PCI of RCA likely sometime this hospitalization. Hemodynamics Rest Ao:: 121/63/104 Final Ao: 116/61/83 LV: 111/14 Recommendations Recommendations: PCI without planned CABG Radiation Exposure (mGy) 1244 Contrast (mls) 80 Anesthesia Moderate 2050-9653 Procedural Complication(s) None Disposition PCU I attest to the content of the Intraoperative Record and any orders documented therein. Any exceptions are noted below. [facility] Card Cath Procedure Codes Cardiac Catheterization Procedure 1: Cardiovascular Cath Procedures: 47671 Coronaries and LHC (+/-LV) Moderate Sedation Procedure 1: Sedation/Anesthesia: 21689 Mod Sedation by the same physician;Init15 Min Child Age 5 & Up Procedure 2: Sedation/Anesthesia: 87916 Mod Sedation by the same physician; Ea [id number] Minutes Stenting Procedure 1: Cardiovascular Stent Procedures: 70082 Perc transluminal revascularization of acute sub/total occl, aMI PG Care Time/CCT Total # of Minutes Spent Total Time Spent with Patient: Total time spent is greater than 50% in coordination of care (as documented) at patient's floor/unit and/or counseling patient:
[2024-10-29] MEDS: METOPROLOL TARTRATE 25 MG TAB PO SCH (22:01)
[2024-10-30] MEDS ORDERED: LIDOCAINE 5% 1 PATCH TD PRN (00:21)
--- NOTE | 2024-10-30 05:40 | Electrocardiogram Report ---
Test Reason : Blood Pressure : */* mmHG Vent. Rate : 89 BPM Atrial Rate : 89 BPM P-R Int : 146 ms QRS Dur : 66 ms QT Int : 340 ms P-R-T Axes : 40 34 76 degrees QTcB Int : 413 ms Normal sinus rhythm ST elevation consider inferolateral injury or acute infarct ACUTE MA / STEMI Consider right ventricular involvement in acute inferior infarct Abnormal ECG When compared with ECG of 16-May-2019 17:37, ST elevation now present in Inferolateral leads Confirmed by Alfredo Obrien ([id number]) on 10/30/2024 5:40:45 AM Referred By: Confirmed By: Alfredo Obrien
[2024-10-30] MEDS: ACETAMINOPHEN 325 MG TAB PO PRN (06:43)
[2024-10-30 06:54] LABS: Basophils # (auto) 0.04 K/uL (0.00-0.20); Basophils % (auto) 0.5 %; Eosinophils # (auto) 0.09 K/uL (0.00-0.50); Eosinophils % (auto) 1.1 %; Hematocrit (blood only) 42.7 % (37.0-47.0); Hemoglobin 14.7 g/dl (12.0-16.0); Immature Granulocytes # (auto) 0.02 K/uL (0.01-0.20); Immature Granulocytes % (auto) 0.2 %; Lymphocytes # (auto) 1.57 K/uL (1.20-3.40); Lymphocytes % (auto) 19.4 %; Mean Corpuscular Hemoglobin 31.2 pg (25.0-34.0); Mean Corpuscular Hgb Conc 34.4 g/dL (32.0-36.0); Mean Corpuscular Volume 90.7 fL (80.0-100.0); Monocytes # (auto) 0.64 K/uL (0.11-0.59); Monocytes % (auto) 7.9 %; Neutrophils # (auto) 5.74 K/uL (1.40-6.50); Neutrophils % (auto) 70.9 %; Platelet Count 149 K/uL (130-400); RDW Coefficient of Variation 12.4 % (11.5-14.5); RDW Standard Deviation 41.1 fL (36.4-46.3); Red Blood Count 4.71 M/uL (4.20-5.40)
[2024-10-30 07:42] LABS: Estimated Average Glucose 108 mg/dl; Hemoglobin A1C 5.4 % (4.5-5.6)
[2024-10-30 08:04] LABS: Alanine Aminotransferase 45 U/L (7-52); Albumin Level 4.3 gm/dl (3.4-5.0); Alkaline Phosphatase 69 U/L (34-104); Aspartate Aminotransferase 148 U/L (13-39); Bilirubin,Total 2.2 mg/dl (0.2-1.0); Total Protein 7.3 gm/dl (6.0-8.3); Troponin I High Sensitivity 24763.5 pg/ml (0-14)
[2024-10-30 09:45] LABS: Anion Gap 9 (3-11); BUN Creatinine Ratio 17.7 (10-20); Blood Urea Nitrogen 14 mg/dl (6-23); Calcium 9.5 mg/dl (8.6-10.3); Carbon Dioxide 25 mmol/L (21-32); Chloride 105 mmol/L (98-107); Creatinine Clr Calc Pharmacy 58.1 ml/min; Glucose 92 mg/dl (70-99(Fasting)); Potassium 3.9 mmol/L (3.5-5.1); Sodium 139 mmol/L (136-145)
[2024-10-30] MEDS: TICAGRELOR 90 MG TAB PO SCH (09:47)
[2024-10-30] MEDS: ATORVASTATIN 40 MG TAB PO SCH (09:47)
[2024-10-30] MEDS: LOSARTAN POTASSIUM 25 MG TAB PO SCH (09:47)
[2024-10-30] MEDS: PANTOprazole 40 MG TAB PO SCH (09:49)
[2024-10-30] MEDS: ASPIRIN 81 MG ECTAB PO SCH (09:49)
[2024-10-30 10:03] LABS: Chol HDL Ratio 4.4 (0-5); Cholesterol 204 mg/dl (0-200); HDL Cholesterol 46 mg/dl; LDL Cholesterol Calculated 108 mg/dl; Triglycerides 248 mg/dl (0-150); VLDL Cholesterol 50 mg/dl (0-30)
--- NOTE | 2024-10-30 11:02 | Ultrasound Report ---
US liver CLINICAL HISTORY: elevated LFTs COMPARISON STUDY: Right upper quadrant ultrasound August 08, 2016. FINDINGS: Hepatic echogenicity is diffusely increased. There is no biliary ductal dilatation status p ost cholecystectomy. The common bile duct measures 4 mm in caliber. The pancreatic body is normal. He ad and tail are obscured by overlying bowel gas. There is no right hydronephrosis. IMPRESSION: 1. Hepatic steatosis. 2. No biliary ductal dilatation status post cholecystectomy. 3. Partially obscured pancreas. ACT 112: Negative or not required by law. Electronically signed by: Zackery Fuentes M.D. 10/30/2024 11:01 AM
--- NOTE | 2024-10-30 13:17 | Post Anesthesia Assessment ---
Date of Service October 30, 2024 Post Sedation Assessment Vital Signs Temp Pulse Pulse Pulse Resp BP BP 10/30/24 13:20 74 16 128/75 10/30/24 11:39 97.2 F L 75 18 114/74 10/30/24 08:42 97.5 F L 69 18 140/87 10/30/24 08:31 74 10/30/24 03:00 98.1 F 71 17 137/93 10/30/24 00:00 75 10/29/24 22:58 98.1 F 79 19 160/95 H 10/29/24 18:15 97.9 F 88 20 155/101 H 10/29/24 17:14 80 15 144/85 H 10/29/24 16:49 97.9 F 72 20 120/74 10/29/24 16:49 10/29/24 16:48 77 10/29/24 15:32 94 H 18 126/92 Pulse Ox Pulse Ox O2 Del Method O2 Del Method 10/30/24 13:20 98 Room Air 10/30/24 11:39 99 Room Air 10/30/24 08:42 97 Room Air 10/30/24 08:31 10/30/24 03:00 99 Room Air 10/30/24 00:00 10/29/24 22:58 97 Room Air 10/29/24 18:15 99 Room Air 10/29/24 17:14 100 Room Air 10/29/24 16:49 96 Room Air 10/29/24 16:49 96 Room Air 10/29/24 16:48 10/29/24 15:32 95 Room Air Recovery Score Activity: Moves 4 extremities Respiration: Deep Breath/Cough Circulation: +/-20% PreAnes Value Consciousness: Fully Awake Oxygen Saturation: O2 needed for >90% Discharge Sedation Level of Care: Fast Track Phase II Post Sedation Plan On clinical assessment, the patient appears to have tolerated the sedation without complications. Patient is recovering as anticipated. Patient will continue to be monitored by nursing and may be discharged when sedation discharge criteria are met per below protocol. Upon Completions of procedure up to 15 minutes continue every 5 minute vital signs and the P.A.R. score; then discharge to a Phase I or Fast Track to Phase II per the following guidelines: * Discharge Patient to appropriate Phase II area if PAR is 8 or greater or return to pre- procedure baseline. The post - procedure orders will be as directed. * If PAR score is less than 8 or not return to pre-procedure baseline then patient will follow Phase I monitoring till PAR is reached for Phase II. The Phase I may be done in procedure room or may call to secure a Phase I area. * If naloxone or flumazenil are used for reversal, hold in Phase I for continued monitoring from when last reversal dose was given for a minimum of 60 minutes or longer pending the nurse and/or physician discretion of patient condition before discharge to Phase II. Please call the Sedation Physician to re-evaluate and complete post-note for discharge to Phase II area. Sedation Discharge Instructions to be given to the patient at discharge to home.
--- NOTE | 2024-10-30 13:17 | Pre Anesthesia Assessment ---
Date of Service October 30, 2024 Pre Sedation Assessment Vital Signs Temp Pulse Pulse Pulse Resp BP BP 10/30/24 11:39 97.2 F L 75 18 114/74 10/30/24 08:42 97.5 F L 69 18 140/87 10/30/24 08:31 74 10/30/24 03:00 98.1 F 71 17 137/93 10/30/24 00:00 75 10/29/24 22:58 98.1 F 79 19 160/95 H 10/29/24 18:15 97.9 F 88 20 155/101 H 10/29/24 17:14 80 15 10/29/24 16:49 97.9 F 72 20 10/29/24 16:49 10/29/24 16:48 77 10/29/24 15:32 94 H 18 10/29/24 15:28 113 H 18 10/29/24 15:14 93 H 10/29/24 15:10 98.2 F 101 H 18 186/100 H BP Pulse Ox Pulse Ox O2 Del Method O2 Del Method 10/30/24 11:39 99 Room Air 10/30/24 08:42 97 Room Air 10/30/24 08:31 10/30/24 03:00 99 Room Air 10/30/24 00:00 10/29/24 22:58 97 Room Air 10/29/24 18:15 99 Room Air 10/29/24 17:14 144/85 H 100 Room Air 10/29/24 16:49 120/74 96 Room Air 10/29/24 16:49 96 Room Air 10/29/24 16:48 10/29/24 15:32 126/92 95 Room Air 10/29/24 15:28 162/106 H 96 Room Air 10/29/24 15:14 10/29/24 15:10 98 Room Air Cardiovascular + regular rate Respiratory + respiratory effort normal Pre-Sedation Airway Assessment Smoking Status: Former smoker Hx Sleep Apnea: No Hx Difficult Intubation: No Short, Thick Neck: No Thyromental Distance: < 3.5 Finger Breadths Oral Cavity: + Dental Abnormalities Mallampati Class: III ASA: ASA4 Procedure Planning Contraindications for Sedation: none Current Medications Reviewed: Yes Notes The planned sedation has been discussed with the patient. Informed Consent was obtained. I have identified the patient, determined the appropriateness of sedation and have assessed the patient immediately prior to the procedure. All medicine(s) and interventions are by my order.
[2024-10-30] MEDS: niCARdipine 2,000 MCG/20 ML SYR ONE (14:03)
[2024-10-30] MEDS: NITROGLYCERIN/D5W 100MCG/ML 20ML SYR ONE (14:03)
[2024-10-30] MEDS: fentaNYL citrate PF 100 MCG/2 ML VIAL ONE (15:13)
[2024-10-30] MEDS: HEPARIN (PORCINE) 1000 UNIT/ML 10 ML (CATH LAB USE ONLY) ONE (15:13)
[2024-10-30] MEDS: OPTIRAY 350 ONE (15:14)
[2024-10-30] MEDS: MIDAZOLAM HCL 1 MG/ML 2ML VIAL ONE ×2 (15:14)
--- NOTE | 2024-10-30 15:36 | Cardiac Catheterization ---
[facility] Data: Ruby On Rails Engineer Cardiac Status Clinical evaluation leading to the procedure CAD Presenation: STEMI Diagnostic Physicians Name: Sanford Morgan MD Closure Device Recommendations: PCI without planned CABG Cardiac Cath Procedure Full Procedure Date October 30, 2024 Pre-Procedure Diagnosis Pre-Procedure Diagnosis: CAD AUC Score AUC Score: 7 Post-Procedure Diagnosis Post-Procedure Diagnosis: Severe CAD and Successful PCI Procedure(s) Performed Procedure(s) Performed: Coronary Angiography and Drug Eluting Stent Printing Supplies Sales Representative Sanford Morgan MD Horticultural Worker(s) Shahriar Estimated Blood Loss Estimated Blood Loss: 20 Medication(s) Medication(s): Fentanyl, Heparin, Lidocaine 1%, Nicardipine, Nitroglycerin and Versed Medication(s): Ticagrelor Summary of Findings Indication: Inferolateral STEMI post primary PCI to distal circumflex yesterday. Here today for staged PCI of severe mid/distal RCA disease. Access: 6 Fr slender right radial artery Catheters: JR4 guide Findings: RCA -medium caliber, dominant, 80% mid segment stenosis, 75% distal disease extending into RPDA. 90% ostial small right posterior AV branch. -- PCI -- Antithrombotic therapy: Heparin, ticagrelor Procedure: RCA cannulated with JR4 guide Pre-procedure flow HEIDY 3 [place] blue wire passed across lesions into distal RPDA Dairy Truck Driver 50 wire placed into right posterior AV branch Ostium of right posterior AV branch gently dilated with 2.0 balloon Distal RCA, mid RCA predilated with 2.0 and 2.5 compliant balloons With the aid of a GuideLiner dilated distal RCA stented with 2.75 x 18 mm Floyd drug-eluting stent Stent post-dilated with 3.0 noncompliant balloon With angioplasty/stenting into PDA had compromised flow and right posterior AV branch with resulting inferior ST changes on telemetry Posterior V branch rewired through stent struts with new elevator pilot 50 wire and ostial/proximal aspect of jailed PAV redilated with 2.0 balloon IC vasodilators administered for spasm. Mid RCA stented with 3.0 x 18 mm Floyd Stent postdilated with 3.5 NC Post procedure HEIDY 3 flow, stents well expanded with minimal residual stenosis and no apparent cardiac complications. HEIDY-3 flow in right posterior branch/PLB's. Arterial Closure: TR band Summary: 1. Successful PCI of mid RCA with single drug-eluting stent (3.0 x 18 mm Emery; postdilated with 3.5 NC). 2. Successful PCI of distal RCA into right PDA with additional QUAN (2.75 x 18 mm Floyd; postdilated with 3.0 NC). Angioplasty of jailed proximal right posterior AV branch with 2.0 balloon Recommendations: To PCU for continued monitoring Continue dual-antiplatelet therapy for at least 1 year Continue statin, and ASCVD risk factor modification Hemodynamics Rest Ao:: 95/62/88 Final Ao: 120/61/97 LV: -- Recommendations Recommendations: PCI without planned CABG Radiation Exposure (mGy) 2473 Contrast (mls) 60 Anesthesia Moderate 6795-8002 Procedural Complication(s) None Disposition PCU I attest to the content of the Intraoperative Record and any orders documented therein. Any exceptions are noted below. [facility] Card Cath Procedure Codes Moderate Sedation Procedure 1: Sedation/Anesthesia: 87988 Mod Sedation by the same physician;Init15 Min Child Age 5 & Up Procedure 2: Sedation/Anesthesia: 55642 Mod Sedation by the same physician; Ea [id number] Minutes Stenting Procedure 1: Cardiovascular Stent Procedures: 03928 Perc transcatheter placement of intracoronary stent(s), with ang PG Care Time/CCT Total # of Minutes Spent Total Time Spent with Patient: Total time spent is greater than 50% in coordination of care (as documented) at patient's floor/unit and/or counseling patient:
--- NOTE | 2024-10-30 16:22 | Hospitalist Progress Note ---
Date of Service October 30, 2024 Assessment & Plan (1) ST elevation (STEMI) myocardial infarction: (2) CAD (coronary artery disease), [place] coronary artery: (3) Irritable bowel syndrome with diarrhea: (4) Fatty liver: Plan This pt is a 74-year-old female with PMH of HTN, Burkitt's lymphoma, IBS, and kidney stones who p/w STEMI, received 1 stent to circumflex for 99% stenosis. ALso with 80% RCA stenosis without intervention acutely. SHe had some accelerated idioventricular rhythm during cath which resolved. had another episode of CP overnight which resolved and without ECG changes-had returned for (planned) interval RCA QUAN x 2 on 10/30. #STEMI/Severe CAD-with very prominent +FH, HTN as risk factors. Now s/p stent to Cx, 2 stents to RCA. Chest pain free, stable post cath w. intervention. [place] 9 [place] [address]. ECHO done but not yet read.. A1C normal, lipids ok. -continued stay PCU for arrhythmia monitoring -started ASA, Brilinta, high intensity atorvastatin, metoprolol, losartan-trend up on doses as BP allows -f/u ECHO -follow CBC, BMP, mag in AM and keep lytes replete -gave radial cath precautions -needs cardiac rehab after discharge-can be arranged by Cardiology -f/u Cardiology after discharge #HTN-BPs have been intermittently elevated as outpt and was started on HCTZ/triamterene which she reports dropped her BP very low and caused lightheadedness and was stopped. Not currently on meds prior to admission -started metoprolol, losartan here -monitor for hypotension-good so far #Hyperbilirubinemia/Fatty liver-TBili mildly elevated here at 1.5-2.2, ALT now also elevated likely from STEMI. TBili has been elevated in the past. No abd pain. -chek liver US--> showed fatty liver, no bile duct issues -follow LFTs -advised low carb diet, weight loss -consult Home Health Occupational Therapist given need for low carb diet, heart healthy diet, and significant IBS-D #H/o Burkitt's lymphoma-resolved, no acute issues #IBS-D-has chronic, frequent diarrhea for many years -continue Imodium prn which she takes at home DVT prophylaxis-SCDs, DAPT Disposition:continued stay PCU, possible dc to home 10/31 Admission and Anticipated Discharge Date Admission Date: October 29, 2024 Subjective Pt seen after return for cardiac cath again. Had CP overnight but none now. No other concerns. Tele with NSR PVCs, 9 beat run VT, rates 70-80s Physical Exam Constitutional: WD/WN, vitals as above Neck: trachea midline, no thyromegaly Respiratory: normal respiratory effort, lungs clear to auscultation Cardiovascular: RRR, no murmur, no edema Chest (Breasts): Chest: normal inspection of chest Gastrointestinal (Abdomen): normal bowel sounds, soft, nontender, no hepatosplenomegaly Musculoskeletal: Extremities: no cyanosis and no clubbing right wrist with TR band in place, no bleeding Skin: no rashes, warm and dry Neurologic: moves all extremities and awake; no focal motor deficits Psychiatric: A+Ox3, euthymic affect Lymphatic: no lymphedema Results & Data Results & Data Vital Signs (Past 12 Hours) Vital Signs Temp Pulse Pulse Pulse Resp BP Pulse Ox 10/30/24 15:56 72 106/69 95 10/30/24 15:38 62 18 109/63 97 10/30/24 15:25 73 18 115/71 97 10/30/24 13:20 74 16 128/75 98 10/30/24 11:39 36.2 C L 75 18 114/74 99 10/30/24 08:42 36.4 C L 69 18 140/87 97 10/30/24 08:31 74 O2 Del Method 10/30/24 15:56 Room Air 10/30/24 15:38 Room Air 10/30/24 15:25 Room Air 10/30/24 13:20 Room Air 10/30/24 11:39 Room Air 10/30/24 08:42 Room Air 10/30/24 08:31 Laboratory Results CBC, BMP, troponin, HgbA1C, lipid panel reviewed PG Care Time/CCT Total # of Minutes Spent Total Time Spent with Patient: Total time spent is greater than 50% in coordination of care (as documented) at patient's floor/unit and/or counseling patient: Coding Level of Care Code 80182 SUB INP/OBS CARE 3/50MIN Diagnoses ST elevation (STEMI) myocardial infarction I21.3 CAD (coronary artery disease), [place] coronary artery I25.10 Irritable bowel syndrome with diarrhea K58.0 Fatty liver K76.0
--- NOTE | 2024-10-30 17:55 | XCELERA ---
[id number]
--- NOTE | 2024-10-30 20:28 | Electrocardiogram Report ---
Test Reason : Blood Pressure : */* mmHG Vent. Rate : 81 BPM Atrial Rate : 81 BPM P-R Int : 156 ms QRS Dur : 68 ms QT Int : 378 ms P-R-T Axes : 54 -8 24 degrees QTcB Int : 439 ms Normal sinus rhythm T wave abnormality, consider inferolateral ischemia Abnormal ECG When compared with ECG of 29-Oct-2024 16:35, T wave inversion now evident in Inferolateral leads Confirmed by Alfredo Obrien ([id number]) on 10/30/2024 8:28:51 PM Referred By: REFERRED SELF Confirmed By: Alfredo Obrien
--- NOTE | 2024-10-30 20:28 | Electrocardiogram Report ---
Test Reason : Blood Pressure : */* mmHG Vent. Rate : 78 BPM Atrial Rate : 78 BPM P-R Int : 164 ms QRS Dur : 68 ms QT Int : 380 ms P-R-T Axes : 44 -4 24 degrees QTcB Int : 433 ms Normal sinus rhythm Normal ECG When compared with ECG of 29-Oct-2024 15:11, ST no longer elevated in Inferolateral leads Nonspecific T wave abnormality now evident in Inferior leads Confirmed by Alfredo Obrien ([id number]) on 10/30/2024 8:28:12 PM Referred By: REFERRED SELF Confirmed By: Alfredo Obrien
[2024-10-30] MEDS: MELATONIN 3 MG TAB PO PRN (20:45)
--- NOTE | 2024-10-30 23:33 | Cardiology Progress Note ---
Date of Service October 30, 2024 Assessment & Plan (1) CAD (coronary artery disease), [place] coronary artery: Plan: Inferolateral STEMI post QUAN to distal circumflex 10/29/2024 Staged PCI with QUAN to mid RCA, QUAN to distal RCA into PDA 10/30/2024 2. Preserved LV functioninferolateral wall motion abnormality echo 10/2024 3. Dyslipidemia 4. Brief NSVT 5. IBS-D 6. History of Burkitt's lymphoma Patient doing well following staged PCI of RCA today. No recurrent chest pain. Her troponin peaked overnight Hemodynamically stable. Brief 9 beat NSVT this morning No signs of heart failure on exam. Ecchymosis at right radial access site but no other significant complications. Continue DAPT with aspirin, ticagrelor Continue current metoprolol, Toprol-XL at discharge Continue current losartan On high intensity statin On PPI Monitor on telemetry overnight. If stable likely home tomorrow. Will arrange follow-up with cardiology in 1 to 2 weeks and will discuss cardiac rehab as an outpatient. Admission and Anticipated Discharge Date Admission Date: October 29, 2024 Subjective Underwent staged PCI to RCA today. Postprocedure feeling well. Denies any chest pain. TR band off. Telemetry reviewedoccasional PVCs, 9 beat run of VT at 100 to 110 bpm Echo reviewedEF 55% with moderate inferolateral wall motion abnormality, mild MR. Review of Systems Review of Systems: All systems reviewed & are unremarkable except as noted in HPI & below Physical Exam Physical Exam: General: Comfortable HEENT: Sclerae anicteric Lungs: Clear to auscultation bilaterally, no crackles or wheezes Cardiac: Regular rate and rhythm, no murmurs. Vascular: Right radial artery access site with ecchymosis but no hematoma. Distal pulse and sensation intact. Abdomen: Soft, nontender Extremities: Well perfused, no peripheral edema Neuro: Nonfocal Psych: Alert orient x3, normal affect and mood Results & Data Vital Signs (Past 12 Hours) Vital Signs Temp Pulse Pulse Pulse Resp BP Pulse Ox 10/30/24 22:31 98.8 F 80 95/65 L 94 10/30/24 20:00 97.8 F 68 20 99/66 L 96 10/30/24 19:11 64 10/30/24 16:25 66 112/74 99 10/30/24 16:23 73 10/30/24 15:56 72 106/69 95 10/30/24 15:38 62 18 109/63 97 10/30/24 15:25 73 18 115/71 97 10/30/24 13:20 74 16 128/75 98 10/30/24 11:39 97.2 F L 75 18 114/74 99 O2 Del Method 10/30/24 22:31 Room Air 10/30/24 20:00 Room Air 10/30/24 19:11 10/30/24 16:25 Room Air 10/30/24 16:23 10/30/24 15:56 Room Air 10/30/24 15:38 Room Air 10/30/24 15:25 Room Air 10/30/24 13:20 Room Air 10/30/24 11:39 Room Air PG Care Time/CCT Total # of Minutes Spent Total Time Spent with Patient: Total time spent is greater than 50% in coordination of care (as documented) at patient's floor/unit and/or counseling patient: Coding Level of Care Code 13324 SUB INP/OBS CARE 3/50MIN Diagnoses CAD (coronary artery disease), [place] coronary artery I25.10
[2024-10-31 02:35] LABS: Albumin Level 4.2 gm/dl (3.4-5.0); BUN Creatinine Ratio 19.7 (10-20); Bilirubin Direct 0.3 mg/dl (0-0.2); Bilirubin,Total 2.7 mg/dl (0.2-1.0); Calcium 8.9 mg/dl (8.6-10.3); Creatinine Clr Calc Pharmacy 39.2 ml/min; Magnesium 1.9 mg/dl (1.7-2.4); Potassium 3.7 mmol/L (3.5-5.1); Total Protein 6.6 gm/dl (6.0-8.3)
[2024-10-31 03:22] LABS: Basophils # (auto) 0.03 K/uL (0.00-0.20); Basophils % (auto) 0.3 %; Eosinophils # (auto) 0.07 K/uL (0.00-0.50); Eosinophils % (auto) 0.8 %; Hematocrit (blood only) 38.9 % (37.0-47.0); Hemoglobin 13.3 g/dl (12.0-16.0); Immature Granulocytes # (auto) 0.02 K/uL (0.01-0.20); Immature Granulocytes % (auto) 0.2 %; Lymphocytes # (auto) 1.53 K/uL (1.20-3.40); Lymphocytes % (auto) 17.2 %; Mean Corpuscular Hemoglobin 31.1 pg (25.0-34.0); Mean Corpuscular Hgb Conc 34.2 g/dL (32.0-36.0); Mean Corpuscular Volume 90.9 fL (80.0-100.0); Mean Platelet Volume 12.6 fL (9.4-12.4); Monocytes # (auto) 0.72 K/uL (0.11-0.59); Monocytes % (auto) 8.1 %; Neutrophils # (auto) 6.52 K/uL (1.40-6.50); Neutrophils % (auto) 73.4 %; Platelet Count 149 K/uL (130-400); RDW Standard Deviation 42.5 fL (36.4-46.3); Red Blood Count 4.28 M/uL (4.20-5.40); White Blood Count 8.89 K/ul (4.8-10.8)
[2024-10-31 06:59] LABS: Troponin I High Sensitivity 13621.6 pg/ml (0-14)
--- NOTE | 2024-10-31 09:08 | Electrocardiogram Report ---
Test Reason : Blood Pressure : */* mmHG Vent. Rate : 85 BPM Atrial Rate : 85 BPM P-R Int : 164 ms QRS Dur : 66 ms QT Int : 388 ms P-R-T Axes : 56 -24 -36 degrees QTcB Int : 461 ms Normal sinus rhythm Inferior infarct , age undetermined Abnormal ECG When compared with ECG of 30-Oct-2024 05:41, T wave inversion more evident in Inferolateral leads Confirmed by Alfredo Obrien ([id number]) on 10/31/2024 9:08:25 AM Referred By: REFERRED SELF Confirmed By: Alfredo Obrien
--- NOTE | 2024-10-31 16:24 | Electrocardiogram Report ---
Test Reason : Blood Pressure : */* mmHG Vent. Rate : 70 BPM Atrial Rate : 70 BPM P-R Int : 158 ms QRS Dur : 70 ms QT Int : 418 ms P-R-T Axes : 39 -21 80 degrees QTcB Int : 451 ms Normal sinus rhythm Inferior infarct , age undetermined Poor R wave progression, consider anterior OR vs. lead placement vs. LVH Inferior ST abnormality Abnormal ECG When compared with ECG of 30-Oct-2024 05:41, Inferior infarct is now Present Confirmed by Arnold Gil ([id number]) on 10/31/2024 4:23:56 PM Referred By: REFERRED SELF Confirmed By: Arnold Gil
[2024-10-31 18:30] LABS: D Dimer 540 ug/L FEU (0-500)
[2024-10-31] MEDS: OPTIRAY 320 125ml IV ONE (20:22)
--- NOTE | 2024-10-31 20:40 | Hospitalist Progress Note ---
Date of Service October 31, 2024 Assessment & Plan (1) ST elevation (STEMI) myocardial infarction: (2) CAD (coronary artery disease), [place] coronary artery: (3) Irritable bowel syndrome with diarrhea: (4) Fatty liver: Plan 74 years old female with PMH of FULL CODE @ home, overweight with BMI 29.6 (height 154.94 cm; weight 71.00kg), IBS, renal calculi, non-Burkitt's lymphoma (e.g., non-Hodgkin's lymphoma), HTN, and CAD, who was admitted to the inpatient hospitalist service @ [facility] on 10/29/2024 with the following diagnosis: 1. Acute infero-lateral wall STEMI. #STEMI/Severe CAD-with very prominent +FH, HTN as risk factors. Now s/p staged PCI with first stent to left circumflex (10/29/2024, [facility] Interventional CARDS Dr. Sanford Morgan), s/p 2 stents to mid-RCA and distal RCA to PDA (10/30/2024, [facility], Interventional CARDS Dr. Sanford Morgan). - TTE (10/30/2024, 7:56am): LVEF 55-60%; moderate inferolateral hypokinesis; normal RV size and systolic function; mild MR; normal estimated PA/RA pressures; compared to 04/01/2024 TTE, inferolateral wall motion abnormality is new. - continue ASA 81mg PO daily, ticagrelor 90mg PO bid, atorvastatin 80mg PO qpm, metoprolol tartrate 12.5mg PO bid, losartan 25mg PO daily - needs cardiac rehab after discharge-can be arranged by Cardiology - f/u CARDS Service of Dr. Sanford Morgan with 2 weeks of hospital discharge #HTN-BPs have been intermittently elevated as outpt and was started on HCTZ/triamterene which she reports dropped her BP very low and caused lig htheadedness and was stopped. Not currently on meds prior to admission -started metoprolol, losartan here -monitor for hypotension-good so far #Hyperbilirubinemia/Fatty liver-TBili mildly elevated here at 1.5-2.2, ALT now also elevated likely from STEMI. TBili has been elevated in the past. No abd pain. -chek liver US--> showed fatty liver, no bile duct issues -follow LFTs -advised low carb diet, weight loss -consult Temper Mill Operator given need for low carb diet, heart healthy diet, and significant IBS-D #H/o non-Burkitt's lymphoma (non-Hodgkin's lymphoma)-resolved, no acute issues #IBS-D-has chronic, frequent diarrhea for many years, at least once a day, without N/V/abdominal pain -continue Imodium prn which she takes at home DVT prophylaxis-SCDs, DAPT Disposition: code status, FULL CODE @ home. ACLS as required. Condition of patient remains fair. I anticipate that patient will be discharged back to her home in the 11/01/2024 am, pending CTA chest (10/31/2024, 6:45pm). Patient will follow up with her PCP Ms. Tayler Moralez, KE[facility], within 5-7 days of hospital discharge, and her CARDS Dr. Sanford Morgan within 2 weeks of hospital discharge. Admission and Anticipated Discharge Date Admission Date: October 29, 2024 Subjective "My chest hurts on the left when I breathe in, not when I breathe out. It's like a 6 (out of 10 point intensity scale of pain) and it's sharp/stabbing. Doesn't go anywhere. Stays right there in the same spot. I didn't fall down or hit my chest. Instead, I had 2 stents placed on 10/30/2024 and 1 stent placed on 10/29/2024." Review of Systems Constitutional: Positive for left-sided pleuritic chest pain. Negative for antecedent/coincident fevers, chills, diaphoresis, cough, wheeze, sore throat, hemoptysis, palpitations, nausea, vomiting, diarrhea, abdominal pain, pelvic pain, hematemesis, hematochezia, melena, hematuria, dysuria, frequency, urgency, headaches, dizziness, lightheadedness, visual changes, hearing changes, weakness, falls, syncope, trauma, travel history, sick contacts, or food/drug ingestions novel or new. All other review of systems are reported as negative by the patient on 10/31/2024. Physical Exam Constitutional: General: Comfortable, coherent, cooperative; wide awake and alert. Not confused, lethargic, or obtunded. Patient speaks in complete, fluent, and articulate sentences without pause, cough, or wheeze. HEENT: Normocephalic, atraumatic. Extra-ocular muscles intact. Pupils equally round and reactive to light. No nystagmus, gaze paresis, anisocoria, miosis, mydriasis, hyphema, scleral injection, conjunctivitis, or pterygium. No otorrhea or rhinorrhea. No pharyngeal erythema, edema, or discharge. Neck: Supple, no stridor, bruit, goiter, or hepato-jugular reflux. Jugular venous pressure is estimated to be 3 cm above the sternal angle of Dangelo, which in turn, is 5 cm above the level of the right atrium; with jugul ar venous pressure estimated to be 8 cm, then, there is no jugular venous distention on 10/31/2024. Lymphatics: No cervical (anterior/posterior), supraclavicular, infraclavicular, axillary, epitrochlear, or inguinal adenopathy. Chest: Symmetric rise and fall with respirations. Non-tender to palpation. Lungs: Clear to auscultation and percussion. No audible expir atory wheeze, egophony, pectoriloquy, increase in tactile fremitus, or flatness/dullness to percussion at the bases. Heart: Regular rate and rhythm. Normal rate. S1 and S2 noted. No S3 or S4 summation gallop. No tripartite friction rub. Grade II/ early systolic murmur @ LLSB without radiation to the carotids, axilla, or back, and which remains invariant in regards to the respiratory cycle. Abdomen: Soft, non-tender, non-distended. No rebound, guarding, Vasquez's sign, or organomegaly. Bowel sounds auscultated in all 4 quadrants. Extremities: No clubbing, cyanosis, or edema. 2+ pedal pulses bilaterally. Skin: No decubitus ulcer, exanthem, or enanthem. Genito-urinary: No urethral discharge. No kahn catheter. Neurology: Alert and oriented in regards to person, place, time, and situation. DTR+ and symmetric. 5/5 motor strength in all 4 extremities, both proximally and distally. No pronator drift. No facial droop. No dysarthria. Psychiatry: No homicidal ideation. No suicidal ideation. No flat affect; smiles appropriately. Results & Data Results & Data Vital Signs (Past 12 Hours) Vital Signs Temp Pulse Pulse Resp BP Pulse Ox O2 Del Method 10/31/24 19:49 36.2 C L 100 H 18 146/88 H 100 Room Air 10/31/24 16:00 36.3 C L 92 H 18 135/86 100 Room Air 10/31/24 14:15 85 10/31/24 11:47 36.5 C 78 18 113/76 98 Room Air Laboratory Results 10/31/24 10/31/24 17:39 02:00 WBC 8.89 RBC 4.28 Hgb 13.3 Hct 38.9 MCV 90.9 MCH 31.1 MCHC 34.2 RDW Std Deviation 42.5 RDW Coeff of Veena 13.0 Plt Count 149 MPV 12.6 H Immature Gran % (Auto) 0.2 Neut % (Auto) 73.4 Lymph % (Auto) 17.2 [place] % (Auto) 8.1 Eos % (Auto) 0.8 Baso % (Auto) 0.3 Neut # (Auto) 6.52 H Lymph # (Auto) 1.53 [place] # (Auto) 0.72 H Eos # (Auto) 0.07 Baso # (Auto) 0.03 Immature Gran # (Auto) 0.02 D-Dimer 540 H* Sodium 139 Potassium 3.7 Chloride 108 H Carbon Dioxide 25 Anion Gap 6 BUN 23 Creatinine 1.17 D Est Cr Clr Drug Dosing 39.2 eGFR 49.58 BUN/Creatinine Ratio 19.7 Glucose 110 H Calcium 8.9 Magnesium 1.9 Total Bilirubin 2.7 H Direct Bilirubin 0.3 H AST 93 H ALT 34 Alkaline Phosphatase 63 Troponin I High Sens 55217.6 H* D Total Protein 6.6 Albumin 4.2 PG Care Time/CCT Total # of Minutes Spent Total Time Spent with Patient: Total time spent is greater than 50% in coordination of care (as documented) at patient's floor/unit and/or counseling patient: Coding Level of Care Code 94520 SUB INP/OBS CARE 2/35MIN Diagnoses ST elevation (STEMI) myocardial infarction I21.3 CAD (coronary artery disease), [place] coronary artery I25.10 Irritable bowel syndrome with diarrhea K58.0 Fatty liver K76.0
--- NOTE | 2024-10-31 22:44 | CT Scan Report ---
Exam(s): CTA CHEST EXAM: CT Angiography Chest With Intravenous Contrast CLINICAL HISTORY: pleuritic chest pain. TECHNIQUE: Axial computed tomographic angiography images of the chest with intravenous contrast. CTDI is 16.86 mGy and DLP is 493.81 mGy-cm. Automated exposure control was utilized for the study. A dose lowering technique was utilized adhering to the principles of ALARA. MIP reconstructed images were created and reviewed. COMPARISON: No relevant prior studies available. FINDINGS: Limitations: There is respiratory artifact, which degrades image quality on multiple image slices. Pulmonary arteries: Accounting for limitations with respiratory artifact, there is no evidence for pulmonary embolism. A few distal subsegmental pulmonary artery segments are of limited diagnostic quality. Aorta: The thoracic aorta is normal in caliber. No dissection. Lungs: Subtle subcentimeter ground-glass opacity in the medial aspect of the superior segment right lower lobe. The lungs are otherwise well aerated. Pleural space: Unremarkable. No significant effusion. No pneumothorax. Heart: Cardiac chambers are normal in caliber. Chronic coronary artery calcification. No pericardial effusion. Bones/joints: No acute fracture. No dislocation. Soft tissues: Unremarkable. Lymph nodes: Unremarkable. No enlarged lymph nodes. IMPRESSION: 1. Accounting for limitations with respiratory artifact, there is no evidence for pulmonary embolism. A few distal subsegmental pulmonary artery segments are of limited diagnostic quality. 2. Subtle subcentimeter ground-glass opacity in the medial aspect of the superior segment right lower lobe. Differential consideration includes subtle area of subsegmental atelectasis or subsegmental alveolitis/pneumonia. The lungs are otherwise well aerated. No pleural effusion or pneumothorax. Electronically signed by: Deion Anne MD 10/31/24 22:43 PM
[2024-10-31] MEDS: ASPIRIN 325 MG ECTAB PO SCH (23:31)
--- NOTE | 2024-10-31 23:41 | Cardiology Progress Note ---
Date of Service October 31, 2024 Assessment & Plan (1) CAD (coronary artery disease), [place] coronary artery: Plan: Inferolateral STEMI post QUAN to distal circumflex 10/29/2024 Staged PCI with QUAN to mid RCA, QUAN to distal RCA into PDA 10/30/2024 2. Preserved LV functioninferolateral wall motion abnormality echo 10/2024 3. Dyslipidemia 4. Brief NSVT 5. IBS-D 6. History of Burkitt's lymphoma Persistent pleuritic chest pain. ECG unchanged, troponin downtrending. Chest pain does not represent recurrent coronary event. NSVT20 beats around 1 AM last night. Beta-dana was held last night due to borderline blood pressures. Metoprolol has since been restarted no significant ventricular ectopy since. Reviewed CTA obtained this eveningno evidence of pericardial effusion. No apparent PE, aortic pathology, new lung disease or pleural effusion. Question if pain may be related to post cardiac injury syndrome (Shadia syndrome) following NE versus musculoskeletal. Will plan to treat with high-dose NSAIDs. Start aspirin 650 mg 3 times daily, begin taper after 1 week Repeat limited echo in a.m. Will hold off on colchicine with patient's IBSD With high-dose NSAIDs we will transition Brilinta to clopidogrel tomorrow. Load 600 mg in morning. Transition to 75 mg daily going forward. Continue PPI on discharge Continue current metoprolol, Toprol-XL at discharge Continue current losartan On high intensity statin Continue to monitor on telemetry overnight. If symptoms stable and no recurrent NSVT okay with discharge tomorrow. Will arrange follow-up with cardiology in 1 to 2 weeks and will discuss cardiac rehab as an outpatient. Admission and Anticipated Discharge Date Admission Date: October 29, 2024 Subjective Persistent but stable, sharp, pleuritic left-sided chest pain last night and throughout the day today. No pain with normal respiration. Denies significant shortness of breath. Telemetry [id number] beat NSVT around 1 AM on 10/31. No significant ventricular ectopy since. Review of Systems Review of Systems: All systems reviewed & are unremarkable except as noted in HPI & below Physical Exam Physical Exam: General: Comfortable HEENT: Sclerae anicteric Lungs: Clear to auscultation bilaterally, no crackles or wheezes Cardiac: Regular rate and rhythm, no murmurs. Vascular: Right radial artery access site with ecchymosis but no hematoma. Distal pulse and sensation intact. Abdomen: Soft, nontender Extremities: Well perfused, no peripheral edema Neuro: Nonfocal Psych: Alert orient x3, normal affect and mood Results & Data Vital Signs (Past 12 Hours) Vital Signs Temp Pulse Pulse Resp BP Pulse Ox O2 Del Method 10/31/24 22:41 98.2 F 86 121/74 95 Room Air 10/31/24 19:49 97.2 F L 100 H 18 146/88 H 100 Room Air 10/31/24 16:00 97.3 F L 92 H 18 135/86 100 Room Air 10/31/24 14:15 85 10/31/24 11:47 97.7 F 78 18 113/76 98 Room Air PG Care Time/CCT Total # of Minutes Spent Total Time Spent with Patient: Total time spent is greater than 50% in coordination of care (as documented) at patient's floor/unit and/or counseling patient: Coding Level of Care Code 61658 SUB INP/OBS CARE 3/50MIN Diagnoses CAD (coronary artery disease), [place] coronary artery I25.10
[2024-11-01] MEDS: CLOPIDOGREL BISULFATE 300 MG TAB PO ONE (07:50)
[2024-11-01] MEDS: LOPERAMIDE HCL 2 MG CAP PO PRN (11:01)
--- NOTE | 2024-11-01 11:14 | XCELERA ---
[id number]
[2024-11-01 11:47] VITALS: BP 99/69; RESP 18; TEMP 97.3; O2SAT 96
--- NOTE | 2024-11-01 13:53 | Discharge Summary ---
Discharge Summary Date of Service November 01, 2024 Principal Dx & Hospital Course #1 = Principal Diagnosis (1) ST elevation (STEMI) myocardial infarction: (2) CAD (coronary artery disease), [place] coronary artery: (3) Irritable bowel syndrome with diarrhea: (4) Fatty liver: Plan 74 years old female with PMH of FULL CODE @ home, overweight with BMI 29.6 (height 154.94 cm; weight 71.00kg), diarrhea-predominant IBS, renal calculi, non-Burkitt's lymphoma (e.g., non-Hodgkin's lymphoma), HTN, and CAD, who was admitted to the inpatient hospitalist service @ [facility] on 10/29/2024 with the following diagnosis: 1. Acute infero-lateral wall STEMI. The following medical issues were addressed while the patient remained in [facility] from 10/29/2024 through 11/01/2024: #Acute infero-lateral wall STEMI/Severe CAD-with very prominent +FH, HTN as risk factors. Now s/p staged PCI with first stent to left circumflex (10/29/2024, [facility] Interventional CARDS Dr. Sanford Morgan), s/p 2 stents to mid-RCA and distal RCA to PDA (10/30/2024, [facility], Interventional CARDS Dr. Sanford Morgan). - TTE (10/30/2024, 7:56am): LVEF 55-60%; moderate inferolateral hypokinesis; normal RV size and systolic function; mild MR; normal estimated PA/RA pressures; compared to 04/01/2024 TTE, inferolateral wall motion abnormality is new (as per Interventional CARDS Dr. Sanford Morgan). - TTE (11/01/2024, 6:30am): LVEF 55-60%; mild inferolateral hypokinesis; normal RV size and systolic function; no MS (as per Interventional CARDS Dr. Sanford Morgan). - patient started with ASA 81mg PO daily (10/29/2024, 4:52pm), ticagrelor 90mg PO bid (10/29/2024, 4:52pm), atorvastatin 80mg PO qpm (10/29/2024, 4:52pm), metoprolol tartrate 12.5mg PO bid (10/29/2024, 4:52pm), losartan 25mg PO daily (10/29/2024, 4:52pm). - patient ended with ASA 650mg PO tid (day #07/29 on 10/31/2024, plavix 600mg PO x 1 dose (11/01/2024, 7:50am), atorvastatin 80mg PO qpm (11/01/2024, 7:40am), metoprolol tartrate 12.5mg PO bid (11/01/2024, 7:39am), losartan 25mg PO daily (11/01/2024, 7:40am). - patient's [facility] #[id number] ([address] [place] [phone]) received electronic prescriptions for ASA 650mg PO tid, #180 tablets, each tablet 325mg, no refills; plavix 75mg PO daily, #30 tablets, no refills; atorvastatin 80mg PO qpm, #30 tablets, no refills; metoprolol tartrate 12.5mg PO bid, #60 tablets, no refills; losartan 25mg PO daily, #30 tablets, no refills; NTG 0.4mg SL q5 minutes prn chest pain, #25 tablets, no refills, on 11/01/2024, prior to patient's discharge back to home on 11/01/2024. - patient subsequently developed acute post-PR pericarditis. - patient subsequently started with two high dose NSAIDS: (1) ASA 650mg PO tid (day #07/29 on 10/31/2024, 11:30pm) with 2 subsequent doses of 650mg on 11/01/2024, 7:30am, 1:27pm; (2) plavix 600mg PO x 1 dose (11/01/2024, 7:50am) - patient's [employer] #[id number] ([address] [place] [phone]) received electronic prescriptions for ASA 650mg PO tid, #180 tablets, each tablet 325mg, no refills; plavix 75mg PO daily, #30 tablets, no refills, on 11/01/2024, prior to patient's discharge back to home on 11/01/2024. - patient will follow up with Interventional CARDS Dr. Sanford Morgan within 7 days of hospital discharge to discuss outpatient Cardiac Rehab #HTN-BPs have been intermittently elevated as outpt and was started on HCTZ/triamterene which she reports dropped her BP very low and caused lightheadedness and was stopped. Not currently on meds prior to admission -started metoprolol tartrate 12.5mg PO bid (10/29/2024, 4:52pm), losartan 25mg PO daily (10/29/2024, 4:52pm); patient has a discharge BP 99/69 (11/01/2024, 11:47am) and HR 81 bpm (11/01/2024, 11:47am). Hence, patient will continue both anti-HTN medications on hospital discharge back to home on 11/01/2024. #Hyperbilirubinemia/Fatty liver-TBili mildly elevated at 1.5 mg/dL (10/29/2024, 3:16pm), 2.2 mg/dL (10/30/2024, 5:36am), 2.7 mg/dL (10/31/2024, 2:00am); AST also elevated (cf., AST 148 U/L (10/30/2024, 5:36am); AST 93 U/L (10/31/2024, 2:00am), most likely from STEMI. Of note, TBili has been consistently/chronically elevated in the past with baseline TBili range, 1.4 mg/dL (11/27/2018, 11:30am) to 1.8 mg/dL (06/04/2024, 10:07am). No abd pain. -checked liver US (10/30/2024, 9:42am) --> showed fatty liver, no bile duct issues -advised low carb diet, weight loss. In addition, patient will follow up with her PCP Ms. Tayler Moralez NP, within 5-7 days of hospital discharge for routine follow up visit with repeat LFT testing. -consulted [employer] given need for low carb diet, heart healthy diet, and significant IBS-D #H/o non-Burkitt's lymphoma (non-Hodgkin's lymphoma)-RESOLVED no acute issues #IBS-D-has chronic, frequent diarrhea for many years, at least once a day, without N/V/abdominal pain -continue Imodium prn which she takes at home DVT prophylaxis-SCDs, DAPT Disposition: code status, FULL CODE @ home. ACLS was never performed. There were no adverse events noted with this hospitalization. Condition of patient remains fair. Patient feels well on 11/01/2024, and hence, patient was discharged back to her home in the 11/01/2024 pm. Patient will follow up with her PCP Ms. Tayler Moralez NP, within 5-7 days of hospital discharge for routine follow up visit with repeat LFT testing. Patient will also follow up with her CARDS Dr. Sanford Morgan within 7 days of hospital discharge to discuss outpatient Cardiac Rehab. Of final note, I spoke with the patient at the bedside in [facility] Tele bed #[id number] today, 11/01/2024, and the patient concurs with the assessment and plan as described above. Admission HPI Per Admitting Provider Nona is a 74-year-old female with PMH of HTN, Burkitt's lymphoma, IBS, and kidney stones. She presented via EMS on 10/29 for chest pressure with bilateral arm and jaw numbness that occurred around 12:30 PM when she was lifting an empty suitcase onto her bed to pack clothing. She reported chest pain/pressure with radiation to the jaw bilaterally, as well as some sweating. No SOB. This pressure went away, but she developed aching/numbness in her left upper extremity. No personal history of heart disease; however, significant family history for PR in her mother, brother, and nephew all in their mid 40s. She has been walking one mile per day and never had chest pain or GONZALEZ. EMS administered 324 mg p.o. aspirin en route. Patient was heart alert in the emergency department after ECG with inferior and lateral ST elevations. She was found to have a 99% distal circumflex stenosis and had one stent placed. She also has other nonculprit disease in RCA that will be treated later. I saw her after return from rn cardiac cath and she is chest pain free, denies SOB, no other concerns. ED course:Heparin IV bolus, Brilinta 180 mg p.o., Nitroglycerin 0.4 mg p.o. SHe is admitted for STEMI, severe CAD Discharge Exam Constitutional General: Comfortable, coherent, cooperative; wide awake and alert. Not confused, lethargic, or obtunded. Patient speaks in complete, fluent, and articulate sentences without pause, cough, or wheeze. HEENT: Normocephalic, atraumatic. Extra-ocular muscles intact. Pupils equally round and reactive to light. No nystagmus, gaze paresis, anisocoria, miosis, mydriasis, hyphema, scleral injection, conjunctivitis, or pterygium. No otorrhea or rhinorrhea. No pharyngeal erythema, edema, or discharge. Neck: Supple, no stridor, bruit, goiter, or hepato-jugular reflux. Jugular venous pressure is estimated to be 3 cm above the sternal angle of Dangelo, which in turn, is 5 cm above the level of the right atrium; with jugular venous pressure estimated to be 8 cm, then, there is no jugular venous distention on discharge date 11/01/2024. Lymphatics: No cervical (anterior/posterior), supraclavicular, infraclavicular, axillary, epitrochlear, or inguinal adenopathy. Chest: Symmetric rise and fall with respirations. Non-tender to palpation. Lungs: Clear to auscultation and percussion. No audible e xpiratory wheeze, egophony, pectoriloquy, increase in tactile fremitus, or flatness/dullness to percussion at the bases. Heart: Regular rate and rhythm. Normal rate. S1 and S2 noted. No S3 or S4 summation gallop. No tripartite friction rub. Grade II/ early systolic murmur @ LLSB without radiation to the carotids, axilla, or back, and which remains invariant in regards to the respiratory cycle. Abdomen: Soft, non-tender, non-distended. No rebound, guarding, Vasquez's sign, or organomegaly. Bowel sounds auscultated in all 4 quadrants. Extremities: No clubbing, cyanosis, or edema. 2+ pedal pulses bilaterally. Skin: No decubitus ulcer, exanthem, or enanthem. Genito-urinary: No urethral discharge. No kahn catheter. Neurology: Alert and oriented in regards to person, place, time, and situation. DTR+ and symmetric. 5/5 motor strength in all 4 extremities, both proximally and distally. No pronator drift. No facial droop. No dysarthria. Psychiatry: No homicidal ideation. No suicidal ideation. No flat affect; smiles appropriately. Discharge Plan Discharge Items Patient Disposition: Home - Self-Care Reason For Visit: STEMI Discharge Diagnosis: 1. Acute inferolateral wall STEMI. 2. Acute post-PR pericarditis. Condition on Discharge: Fair Activity: Resume your previous activity Lifting: Gradually increase as tolerated Bathing: No limitations Sexual Activity: When tolerated Exercise/Sports: Gradually increase as tolerated Driving/Machine Use: No limitations Weightbearing: Full weightbearing Non-emergency contact: Primary Care Provider Call non-emergency contact if: you have any medication questions Follow-up/Referrals: Sanford Morgan MD [Physician] - Tayler Moralez [Primary Care Provider] - Diet: Heart Healthy, Low Fat and Low Sodium (2gm) Addtl Attending Provider Instructions: See your Interventional CARDS Dr. Sanford Morgan within 7 days of hospital discharge to discuss outpatient Cardiac Rehab. Pending Studies at Discharge: No Stand-Alone Forms: My [employer], Smoking Cessation Medications and DC Order Prescriptions: New atorvastatin 40 mg Tablet 80 mg PO QAM Qty: 30 0RF clopidogrel 75 mg Tablet 75 mg PO QAM Qty: 30 0RF aspirin [Ecotrin] 325 mg Tablet,Delayed Release (Dr/Ec) 650 mg PO TID Qty: 180 0RF pantoprazole 40 mg Tablet,Delayed Release (Dr/Ec) 40 mg PO QAM Qty: 30 0RF losartan 25 mg Tablet 25 mg PO QAM Qty: 30 0RF nitroglycerin [Nitrostat] 0.4 mg Tablet, Sublingual 0.4 mg sublingual Q5M PRN (Reason: chest pain) Qty: 25 0RF metoprolol tartrate 25 mg Tablet 12.5 mg PO BID Qty: 60 0RF Discharge Orders: Discharge Order (Routine); Ordered 11/01/24 Ordered By: Ed Noyola/Other Patient Handouts: Coronary Stents, CAD, Heart Disease Women, Identifying Your Heart Risks Admission Data Admit Date/Time: 10/29/24 16:00 Attending Provider: Ed Dc Admit Provider: Yon Egan Primary Care Provider: Tayler Moralez Hospital Stay Data Procedures Performed Operation Date: 10/30/24 13:00 Actual Procedures p Drug Eluting Stent SGl Vessel - Sanford Morgan MD s Cineradiography w/Routine Exam - Sanford Morgan MD Diagnostic Imagining Performed 10/29/24 15:35 CL Cath Imgs for PACS use only Stat 10/30/24 09:42 US liver Routine 10/30/24 13:00 CL Cath Imgs for PACS use only Routine 10/31/24 18:45 CT angio chest PE protocol Stat Pending Results Patient Have Any Pending Studies at Discharge: No Discharge Instructions Given to Patient (Per Discharging Provider) See your Interventional CARDS Dr. Sanford Morgan within 7 days of hospital discharge to discuss outpatient Cardiac Rehab. Total Time Total Time Spent Total Time Spent (In Minutes): 35 minutes. Of this time period, 19 minutes were spent in preparing patient's discharge. Coding Level of Care Code 35454 INP/OBS DISCH >[address] elevation (STEMI) myocardial infarction I21.3 CAD (coronary artery disease), [place] coronary artery I25.10 Irritable bowel syndrome with diarrhea K58.0 Fatty liver K76.0
[2024-11-01 13:56] VITALS: PULSE 74
--- NOTE | 2024-11-01 21:22 | Cardiology Progress Note ---
Date of Service November 01, 2024 Assessment & Plan (1) CAD (coronary artery disease), [place] coronary artery: Plan: Inferolateral STEMI post QUAN to distal circumflex 10/29/2024 Staged PCI with QUAN to mid RCA, QUAN to distal RCA into PDA 10/30/2024 2. Preserved LV functioninferolateral wall motion abnormality echo 10/2024 3. Dyslipidemia 4. Brief NSVT 5. IBS-D 6. History of Burkitt's lymphoma 7. Pleuritic chest painquestion Shadia syndrome Looks well today. Pain reduced. Breathing comfortably Hemodynamically and electrically stable No signs of heart failure on exam. No apparent access site complications. Reviewed repeat echo from this morning. No pericardial effusion. LV function improved. From a cardiac standpoint okay with discharge today Loaded with clopidogrel today. Continue clopidogrel 75 mg daily going forward Continue high-dose NSAIDs for postcardiac injury syndrome. Aspirin 60 to 50 mg 3 times daily. Begin to titrate after 1 week. Will hold off on colchicine with patient's IBSD Continue PPI on discharge Transition to Toprol-XL at discharge Continue current losartan On high intensity statin Will arrange follow-up with me in 1 to 2 weeks. We discussed cardiac rehab today interested in participating. Admission and Anticipated Discharge Date Admission Date: October 29, 2024 Subjective Feeling well this morning. Still with minimal chest pain with deep inspiration but pain severity reduced. No shortness of breath. Telemetry reviewedsinus with no recurrent significant ventricular ectopy for last 24 hours Review of Systems Review of Systems: All systems reviewed & are unremarkable except as noted in HPI & below Physical Exam Physical Exam: General: Comfortable HEENT: Sclerae anicteric Lungs: Clear to auscultation bilaterally, no crackles or wheezes Cardiac: Regular rate and rhythm, no murmurs. Vascular: Right radial artery access site with ecchymosis but no hematoma. Distal pulse and sensation intact. Abdomen: Soft, nontender Extremities: Well perfused, no peripheral edema Neuro: Nonfocal Psych: Alert orient x3, normal affect and mood Results & Data Vital Signs (Past 12 Hours) Vital Signs Temp Pulse Pulse Resp BP Pulse Ox O2 Del Method 11/01/24 13:43 97.3 F L 74 81 18 99/69 L 96 11/01/24 11:47 97.3 F L 81 18 99/69 L 96 Room Air PG Care Time/CCT Total # of Minutes Spent Total Time Spent with Patient: Total time spent is greater than 50% in coordination of care (as documented) at patient's floor/unit and/or counseling patient: Coding Level of Care Code 66679 SUB INP/OBS CARE 2MIN Diagnoses CAD (coronary artery disease), [place] coronary artery I25.10
[2024-11-02] MEDS ORDERED: CLOPIDOGREL BISULFATE 75 MG TAB PO SCH (09:00)
== END 2024-11-01 14:45 | disposition home or self-care (01) | DRG 322 ==
LOC: ED 15:06 → 4W 15:45 → CC 15:45 → 4W 16:00 → SUATTDRO 16:00